=== PATIENT | female | born 1955 | race Caucasian/White ===

== ENCOUNTER 2016-07-06 21:12 | Inpatient (IN) | payer OTHER, MEDICAID ==
--- NOTE | 2016-07-06 21:23 | CPEKG ---
Heart Rate: 92 RR Interval: 652 P-R Interval: 192 QRSD Interval: 98 QT Interval: 380 QTC Interval: 471 P Alvarado: 48 QRS Alvarado: 51 T Wave Alvarado: 41 EKG Severity - ABNORMAL ECG - EKG Impression: SINUS RHYTHM EKG Impression: ABNRM R PROG, CONSIDER ASMI OR LEAD PLACEMENT Electronically Signed By: Brenda Jose 06-Jul-2016 22:36:51
--- NOTE | 2016-07-06 21:25 | EDPHY ---
H & P Time Seen by Provider: 07/06/16 21:22 HPI/ROS: CHIEF COMPLAINT: Chest pain HISTORY OF PRESENT ILLNESS: This patient is a 61 year old female who presents to the Emergency Department by EMS complaining of acute chest pain beginning tonight. When first describing her pain, she states that it began 30 minutes prior to arrival but also reports that it has lasted for two hours; she is unclear when her symptoms first presented. She describes the pain as localized in the center of her chest without radiation or jaw tightness. She reports associated shortness of breath and nausea. She denies diaphoresis, unusual swelling in her legs, fever, or cough. She was recently admitted to [facility] with unspecified complications related to a UTI. She was discharged to [facility] where she has been for the past two days. She has an extensive medical history including type II diabetes with diabetic chronic kidney disease and COPD. Per EMS, her BGL was 471 in transport. REVIEW OF SYSTEMS: A complete 10 point review of systems is negative except as mentioned in history of present illness. Past Medical/Surgical History: Insulin-dependent diabetes, diabetic chronic kidney disease, primary hypertension, COPD, chronic low back pain, unspecified mood disorder, PTSD. Smoking Status: Never smoked Physical Exam: GENERAL: Well-appearing, in no acute distress, alert. HEENT: Eyes normal to inspection, normal pharynx, no signs of dehydration. NECK: No thyromegaly, no lymphadenopathy, supple. RESPIRATORY: Clear to auscultation bilaterally, no rales, rhonchi or wheezing. CVS: Regular rate and rhythm, no rubs, murmurs, or gallops. ABDOMEN: Obese, soft, nontender, nondistended, no organomegaly. BACK: Normal to inspection, no CVA tenderness. SKIN: Normal color, no rash, warm, dry. No pallor. EXTREMITIES: No pedal edema, no calf tenderness, no Homans sign or cords, no joint swelling. NEURO/PSYCH: Alert and oriented x3, normal mood and affect, normal motor sensory exam. No obvious cranial nerve deficit. Constitutional: Initial Vital Signs Temperature (C) 37.1 C 07/06/16 21:24 Heart Rate 93 07/06/16 21:24 Respiratory Rate 20 07/06/16 21:24 Blood Pressure 126/78 H 07/06/16 21:24 O2 Sat (%) 100 07/06/16 21:24 O2 (L/minute) 4 Allergies/Adverse Reactions: ciprofloxacin [From Cipro] Allergy (Verified 07/06/16 21:22) ciprofloxacin HCl [From Cipro] Allergy (Verified 07/06/16 21:22) droperidol [From Inapsine] Allergy (Verified 07/06/16 21:22) prochlorperazine Allergy (Verified 07/06/16 21:22) prochlorperazine edisylate [From Compazine] Allergy (Verified 07/06/16 21:22) prochlorperazine maleate [From Compazine] Allergy (Verified 07/06/16 21:22) Home Medications: Medication Instructions Recorded Docusate Sodium [Colace 100 MG (*)] 100 mg PO HS 01/01/13 Gabapentin [Neurontin 300 MG (*)] 600 mg PO DAILY 01/01/13 Gabapentin [Neurontin 300 MG (*)] 900 mg PO HS 01/01/13 Liothyronine Sodium [Cytomel 5 mcg 10 mcg PO BID 01/01/13 (*)] Omeprazole 40 mg PO DAILY 01/01/13 Promethazine HCl [Phenergan 25mg 25 mg PO BID 01/01/13 (*)] Potassium Chloride [Klor-Con M10] 20 meq PO BID 06/14/13 Aspirin [Aspirin 81mg (*)] 81 mg PO DAILY 07/20/13 Furosemide [Lasix 40 MG (*)] 80 mg PO BID 07/20/13 Lidocaine 5% [Lidoderm 5% Patch 1 - 2 ea TD Q12 PRN 07/20/13 (*)] Diazepam [Valium 2 MG (*)] 1 mg PO BID PRN 12/22/13 Levothyroxine [Synthroid 100 mcg 200 mcg PO DAILY06 12/22/13 (*)] Albuterol [Proventil Neb] 2.5 mg IH DAILY PRN 02/14/14 Cholecalciferol Vit D3 [Vitamin D3 2,000 units PO DAILY 02/14/14 (*)] Fluoxetine HCl [Prozac 40 mg] 40 mg PO DAILY 02/14/14 Insulin Aspart [novoLOG] 0 unit SC AC 02/14/14 Ketoconazole 2% [Nizoral 2% Cream 1 sonny TP DAILY PRN 02/14/14 (*)] Nystatin [Nyamyc] 1 sonny TP TID PRN 02/14/14 Ondansetron HCl [Zofran] 8 mg PO DAILY PRN 02/14/14 Phenazopyridine HCl [Pyridium] 400 mg PO DAILY PRN 02/14/14 Promethazine HCl [Phenergan] 50 mg IM DAILY PRN 02/14/14 acetaZOLAMIDE [Diamox] 250 mg PO QAM 02/14/14 Insulin Glargine [Lantus 100 24 units SC DAILY #0 ml 02/18/14 UNITS/ML (*)] morphINE IR [morphINE IR 15 mg (*)] 7.5 - 15 mg PO Q4 PRN #0 tab 02/18/14 morphINE SR [Ms Contin/Oramorph 15 30 mg PO BID #0 tab 02/18/14 mg (*)] Medical Decision Making - Diagnostics EKG Interpretation: EKG shows normal sinus rhythm, normal rate, normal axis, normal intervals. Poor R wave progression. There are no ST or T-wave abnormalities. Imaging: Study: X-ray of the chest Indication: Chest pain Results: X-ray of the chest was obtained. The results of the study are: The study was read by the radiologist, Dr. Emre Martin. I viewed the images myself on the PACS system. ED Course/Re-evaluation: The patient was administered Aspirin by EMS in transport. EKG, chest x-ray, and labs ordered. Consultation with Dr. Kalyn Rashid, hospitalist, who accepts admission for cardiac monitoring. Labs have not yet been obtained as the patient is a difficult stick secondary to her obesity. 2222: The RN obtained blood and an IV was established. I signed the patient out to Dr. Gamboa and discussed with him the plan for admission for continued cardiac monitoring. Differential Diagnosis: My differential includes but is not limited to ACS, acute [place], pericarditis, myocarditis, aortic aneurysm, dissection, pneumonia, bronchitis, urinary tract infection, electrolyte abnormality, sugar abnormality - Data Points Laboratory Results: 07/06/16 21:39 WBC Pending RBC Pending Hgb Pending Hct Pending MCV Pending MCH Pending MCHC Pending RDW Pending Plt Count Pending MPV Pending Neut % (Auto) Pending Lymph % (Auto) Pending [place] % (Auto) Pending Eos % (Auto) Pending Baso % (Auto) Pending Nucleat RBC Rel Count Pending Absolute Neuts (auto) Pending Absolute Lymphs (auto) Pending Absolute Monos (auto) Pending Absolute Eos (auto) Pending Absolute Basos (auto) Pending Absolute Nucleated RBC Pending Immature Gran % Pending Immature Gran # Pending Departure - Departure Disposition: [facility] In[facility] Acute Clinical Impression: Chest pain Qualifiers: Chest pain type: unspecified Qualifier Code: (R07.9) Chest pain, unspecified Condition: Fair Referrals: KIRTI ACEVEDO [Primary Care Provider] - As per Instructions Report Scribed for: Brenda Jose Report Scribed by: Anna Carranza Date of Report: 07/06/16 Time of Report: 21:24
[2016-07-06 22:34] LABS: % IMMATURE GRANULYOCYTES 0.4 % (0.0-1.1); ABSOLUTE IMMATURE GRANULOCYTES 0.02 10^3/uL (0.00-0.10); ADD DIFF? NO; ADD MORPH? NO; ADD SCAN? NO; ATYPICAL LYMPHOCYTE FLAG 0 (0-99); FRAGMENT RBC FLAG 0 (0-99); HEMATOCRIT 36.1 % (38.0-47.0); HEMOGLOBIN 11.7 g/dL (12.6-16.3); LEFT SHIFT FLG 0 (0-99); LIPEMIA HEMOLYSIS FLAG 80 (0-99); MEAN CELL HEMOGLOBIN 28.2 pg (27.9-34.1); MEAN CELL HEMOGLOBIN CONCENTR. 32.4 g/dL (32.4-36.7); PLATELET CLUMPS FLAG 20 (0-99); PLATELET COUNT 95 10^3/uL (150-400); RED BLOOD CELL COUNT 4.15 10^6/uL (4.18-5.33); RED CELL DISTRIBUTION WIDTH 16.3 % (11.5-15.2)
[2016-07-06 22:44] LABS: ANION GAP 14 mEq/L (8-16); CALCIUM 9.5 mg/dL (8.5-10.4); CARBON DIOXIDE 32 mEq/l (22-31); CHLORIDE 89 mEq/L (97-110); CREATININE 2.9 mg/dL (0.6-1.0); GLOMERULAR FILTRATION RATE 16; SODIUM 135 mEq/L (134-144)
[2016-07-06 22:45] LABS: POTASSIUM 4.5 mEq/L (3.3-5.0)
[2016-07-06 22:47] LABS: GLUCOSE 547 mg/dL (70-100)
[2016-07-06] MEDS ORDERED: NS 1,000 ML IV ONE (22:48)
--- NOTE | 2016-07-06 22:55 | DX ---
Portable AP Upright Chest, at 10:36 p.m. Clinical History: 61-year-old female in the ED with chest pain. Comparison Study: Chest, dated February 14, 2014. Findings: The patient is slightly rotated the right. Oxygen tubing and telemetry monitoring lead line s are noted. The cardiac and mediastinal silhouette remains enlarged. The pulmonary vasculature is eq ualized, and there is some mild peribronchial thickening. There is no focal infiltrate, pleural effus ion, peripheral interstitial edema, or pneumothorax. The osseous structures are stable. Impression: Chronic cardiac silhouette enlargement and mild pulmonary venous hypertension.
[2016-07-06 23:05] LABS: TROPONIN I < 0.012 ng/mL (0-0.034)
[2016-07-06 23:21] LABS: INR 1.02 (0.83-1.16); PROTIME(PATIENT) 13.3 SEC (12.0-15.0)
[2016-07-06 23:22] LABS: APTT 25.5 SEC (23.0-38.0)
[2016-07-06] MEDS ORDERED: HYDROCODONE/APAP 5/325 TAB PO PRN (23:23)
[2016-07-06] MEDS ORDERED: ONDANSETRON 4 MG/2 ML VIAL IVP PRN (23:23)
[2016-07-06] MEDS ORDERED: IPRATROPIUM/ALBUTEROL 3 ML DEYVIAL IH PRN (23:23)
[2016-07-06] MEDS ORDERED: ONDANSETRON DISINTEGRATING 4 MG TAB PO PRN (23:23)
[2016-07-06] MEDS ORDERED: ACETAMINOPHEN 325 MG TAB PO PRN (23:23)
[2016-07-06 23:25] LABS: COLOR PALE YELLOW; LEUKOCYTE ESTERASE,URINE NEGATIVE (NEGATIVE); NITRITE,URINE NEGATIVE (NEGATIVE)
[2016-07-06] MEDS ORDERED: D50W 25 GM/50 ML SYR IVP PRN (23:30)
[2016-07-06] MEDS ORDERED: INSULIN LISPRO 100 UNIT/ML SC ONE (23:57)
[2016-07-07] MEDS ORDERED: NS 1,000 ML IV SCH (00:30)
[2016-07-07] MEDS ORDERED: INSULIN LISPRO 100 UNIT/ML SC ONE (01:13)
[2016-07-07] MEDS ORDERED: TEMAZEPAM 15 MG CAP PO ONE (01:15)
[2016-07-07] MEDS ORDERED: NS 1,000 ML IV ONE (01:17)
[2016-07-07] MEDS: oxyCODONE IR 5 MG TAB PO PRN ×2 (01:35→20:40)
[2016-07-07 05:00] LABS: % IMMATURE GRANULYOCYTES 0.4 % (0.0-1.1); ABSOLUTE IMMATURE GRANULOCYTES 0.02 10^3/uL (0.00-0.10); ADD DIFF? NO; ADD MORPH? NO; ADD SCAN? NO; ATYPICAL LYMPHOCYTE FLAG 0 (0-99); FRAGMENT RBC FLAG 0 (0-99); HEMATOCRIT 31.6 % (38.0-47.0); HEMOGLOBIN 10.3 g/dL (12.6-16.3); LEFT SHIFT FLG 0 (0-99); LIPEMIA HEMOLYSIS FLAG 80 (0-99); MEAN CELL HEMOGLOBIN 28.4 pg (27.9-34.1); MEAN CELL HEMOGLOBIN CONCENTR. 32.6 g/dL (32.4-36.7); MEAN CELL VOLUME 87.1 fL (81.5-99.8); MEAN PLATELET VOLUME 11.6 fL (8.7-11.7); PLATELET CLUMPS FLAG 0 (0-99); PLATELET COUNT 89 10^3/uL (150-400); RED BLOOD CELL COUNT 3.63 10^6/uL (4.18-5.33); RED CELL DISTRIBUTION WIDTH 16.3 % (11.5-15.2)
[2016-07-07 05:13] LABS: ALANINE AMINOTRANSFERASE 33 IU/L (9-52); ALBUMIN 3.2 g/dL (3.5-5.0); ALKALINE PHOSPHATASE 89 IU/L (38-126); ANION GAP 10 mEq/L (8-16); ASPARTATE AMINOTRANSFERASE 16 IU/L (14-46); BILIRUBIN,TOTAL 0.5 mg/dL (0.1-1.4); CALCIUM 8.9 mg/dL (8.5-10.4); CARBON DIOXIDE 30 mEq/l (22-31); CHLORIDE 94 mEq/L (97-110); CREATININE 2.7 mg/dL (0.6-1.0); GLOMERULAR FILTRATION RATE 18; MAGNESIUM 1.8 mg/dL (1.6-2.3); POTASSIUM 4.3 mEq/L (3.5-5.2); SODIUM 134 mEq/L (134-144); TOTAL PROTEIN 6.2 g/dL (6.3-8.2)
[2016-07-07 05:15] LABS: GLUCOSE 521 mg/dL (70-100)
[2016-07-07 05:24] LABS: TROPONIN I < 0.012 ng/mL (0-0.034)
--- NOTE | 2016-07-07 05:57 | PDGENHP ---
History and Physical - Chief Complaint chest pain - History of Present Illness Patient is a 61-year-old female with a history of DM type 2, COPD on chronic oxygen, CKD, hypertension, chronic pain, morbid obesity who presents to the ED complaining of chest pain. Patient had recent hospitalization at outside hospital for UTI, was discharged to the subacute rehab and then to [facility]term [facility] living facility two days ago. She states at around 6: 30 a.m. this evening while lying in bed she felt palpitations, which then became accompanied with substernal chest pain and dizziness. She denies any diaphoresis, nausea, shortness of breath. She informed the [facility] staff of her symptoms and EMS was called. She also reports prior to leaving her most recent blood sugar was in the 600 range. She reports being on Lantus and short- acting insulin, but is not sure when it was last administered. Upon arrival to the ED patient was afebrile and hemodynamically stable. EKG was unremarkable for any signs of active ischemia. Labs were significant for hyperglycemia in the 500 range elevated BUN and creatinine and negative troponin. Chest x-ray was unremarkable and patient was admitted to the hospital service for further evaluation and management History Information - Allergies/Home Medication List Allergies/Adverse Reactions: ciprofloxacin [From Cipro] Allergy (Verified 07/06/16 21:22) ciprofloxacin HCl [From Cipro] Allergy (Verified 07/06/16 21:22) droperidol [From Inapsine] Allergy (Verified 07/06/16 21:22) prochlorperazine Allergy (Verified 07/06/16 21:22) prochlorperazine edisylate [From Compazine] Allergy (Verified 07/06/16 21:22) prochlorperazine maleate [From Compazine] Allergy (Verified 07/06/16 21:22) Home Medications: Docusate Sodium [Colace 100 MG (*)] 100 mg PO HS 01/01/13 [Last Taken 01/30/14] Gabapentin [Neurontin 300 MG (*)] 600 mg PO DAILY 01/01/13 [Last Taken 01/31/14] Gabapentin [Neurontin 300 MG (*)] 900 mg PO HS 01/01/13 [Last Taken 02/12/14] Liothyronine Sodium [Cytomel 5 mcg (*)] 10 mcg PO BID 01/01/13 [Last Taken 12/22 09:00] Omeprazole 40 mg PO DAILY 01/01/13 [Last Taken 01/31/14] Promethazine HCl [Phenergan 25mg (*)] 25 mg PO BID 01/01/13 [Last Taken 02/13/14 ] Potassium Chloride [Klor-Con M10] 20 meq PO BID 06/14/13 [Last Taken 02/14/14] Aspirin [Aspirin 81mg (*)] 81 mg PO DAILY 07/20/13 [Last Taken 02/14/14] Furosemide [Lasix 40 MG (*)] 80 mg PO BID 07/20/13 [Last Taken 01/31/14] Lidocaine 5% [Lidoderm 5% Patch (*)] 1 - 2 ea TD Q12 PRN 07/20/13 [Last Taken ] Diazepam [Valium 2 MG (*)] 1 mg PO BID PRN 12/22/13 [Last Taken 12/21/13 20:00] Levothyroxine [Synthroid 100 mcg (*)] 200 mcg PO DAILY06 12/22/13 [Last Taken 09:00] Albuterol [Proventil Neb] 2.5 mg IH DAILY PRN 02/14/14 [Last Taken Unknown] Cholecalciferol Vit D3 [Vitamin D3 (*)] 2,000 units PO DAILY 02/14/14 [Last Taken Unknown] Fluoxetine HCl [Prozac 40 mg] 40 mg PO DAILY 02/14/14 [Last Taken 02/14/14] Insulin Aspart [novoLOG] 0 unit SC AC 02/14/14 [Last Taken 02/14/14] Ketoconazole 2% [Nizoral 2% Cream (*)] 1 sonny TP DAILY PRN 02/14/14 [Last Taken Unknown] Nystatin [Nyamyc] 1 sonny TP TID PRN 02/14/14 [Last Taken Unknown] Ondansetron HCl [Zofran] 8 mg PO DAILY PRN 02/14/14 [Last Taken Unknown] Phenazopyridine HCl [Pyridium] 400 mg PO DAILY PRN 02/14/14 [Last Taken Unknown] Promethazine HCl [Phenergan] 50 mg IM DAILY PRN 02/14/14 [Last Taken Unknown] acetaZOLAMIDE [Diamox] 250 mg PO QAM 02/14/14 [Last Taken Unknown] I have personally reviewed and updated: family history, medical history, social history, surgical history - Past Medical History Additional medical history: COPD. Chronic respiratory failure. Hypertension. CKD. DM type 2, on insulin. Morbid obesity. Hypothyroidism. chronic pain, with chronic opioid dependence. Mood disorder. Thoracic outlet syndrome. distant history of pulmonary embolism. Patient reports a history of atrial fibrillation, although this is not documented in her [facility] paperwork, nor any previous documentation in [facility] EMR - Surgical History Additional surgical history: b/l cataract repair. R nephrectomy. appendectomy. cholecystectomy. hysterectomy. R ankle laceration repair. thoracic rib removal/thoracic outlet syndrome repair - Family History Positive for: CAD - Social History Smoking Status: Never smoked Alcohol Use: None Additional social history: Lives in [facility], dependent for most ADLs. Family in [place]. Review of Systems ROS: 10pt was reviewed & negative except for what was stated in HPI & below Physical Exam Temp Pulse Resp BP Pulse Ox 36.9 C 67 16 105/53 L 97 07/07/16 03:50 07/07/16 03:50 07/07/16 03:50 07/07/16 03:50 07/07/16 03:50 O2 (L/minute) 4 Constitutional: no apparent distress, not in pain, obese Eyes: PERRL, anicteric sclera, EOMI Ears, Nose, Mouth, Throat: moist mucous membranes, hearing normal, ears appear normal, no oral mucosal ulcers Cardiovascular: regular rate and rhythym, systolic murmur (ejection murmur), pulses symmetric bilaterally, edema (b/l edema and chronic venous stasis changes ), No JVD, No tachycardia Peripheral Pulses: 2+: dorsalis-pedis (R), dorsalis-pedis (L) Respiratory: no respiratory distress, no rales or rhonchi, clear to auscultation , other (distant breath sounds) Gastrointestinal: normoactive bowel sounds, soft, non-tender abdomen, no palpable masses, other (obese), No tenderness, No guarding, No rebound Genitourinary: no bladder fullness, no bladder tenderness Skin: other (chronic venous stasis changes on b/l LE, erythema more pronounced on RLE) Neurologic: AAOx3, sensation intact bilaterally, CN II-XII Intact, other ( moving all extremities equally; sensation to light touch intact), No weakness, No numbness, No pronator drift Psychiatric: interacting appropriately, not anxious, not encephalopathic, thought process linear Lab Data & Imaging Review 07/07/16 04:00 07/07/16 04:00 WBC 4.69 10^3/uL (3.80-9.50) 07/07/16 04:00 RBC 3.63 10^6/uL (4.18-5.33) L 07/07/16 04:00 Hgb 10.3 g/dL (12.6-16.3) L 07/07/16 04:00 Hct 31.6 % (38.0-47.0) L 07/07/16 04:00 MCV 87.1 fL (81.5-99.8) 07/07/16 04:00 MCH 28.4 pg (27.9-34.1) 07/07/16 04:00 MCHC 32.6 g/dL (32.4-36.7) 07/07/16 04:00 RDW 16.3 % (11.5-15.2) H 07/07/16 04:00 Plt Count 89 10^3/uL (150-400) L 07/07/16 04:00 MPV 11.6 fL (8.7-11.7) 07/07/16 04:00 Neut % (Auto) 45.9 % (39.3-74.2) 07/07/16 04:00 Lymph % (Auto) 38.8 % (15.0-45.0) 07/07/16 04:00 [place] % (Auto) 9.6 % (4.5-13.0) 07/07/16 04:00 Eos % (Auto) 4.9 % (0.6-7.6) 07/07/16 04:00 Baso % (Auto) 0.4 % (0.3-1.7) 07/07/16 04:00 Nucleat RBC Rel Count 0.0 % (0.0-0.2) 07/07/16 04:00 Absolute Neuts (auto) 2.15 10^3/uL (1.70-6.50) 07/07/16 04:00 Absolute Lymphs (auto) 1.82 10^3/uL (1.00-3.00) 07/07/16 04:00 Absolute Monos (auto) 0.45 10^3/uL (0.30-0.80) 07/07/16 04:00 Absolute Eos (auto) 0.23 10^3/uL (0.03-0.40) 07/07/16 04:00 Absolute Basos (auto) 0.02 10^3/uL (0.02-0.10) 07/07/16 04:00 Absolute Nucleated RBC 0.00 10^3/uL (0-0.01) 07/07/16 04:00 Immature Gran % 0.4 % (0.0-1.1) 07/07/16 04:00 Immature Gran # 0.02 10^3/uL (0.00-0.10) 07/07/16 04:00 PT 13.3 SEC (12.0-15.0) 07/06/16 21:39 INR 1.02 (0.83-1.16) 07/06/16 21:39 APTT 25.5 SEC (23.0-38.0) 07/06/16 21:39 D-Dimer 1.42 ug/mLFEU (0.00-0.50) H 07/06/16 21:39 Sodium 134 mEq/L (134-144) 07/07/16 04:00 Potassium 4.3 mEq/L (3.5-5.2) 07/07/16 04:00 Chloride 94 mEq/L (97-110) L 07/07/16 04:00 Carbon Dioxide 30 mEq/l (22-31) 07/07/16 04:00 Anion Gap 10 mEq/L (8-16) 07/07/16 04:00 BUN 31 mg/dL (7-23) H 07/07/16 04:00 Creatinine 2.7 mg/dL (0.6-1.0) H 07/07/16 04:00 Estimated GFR 18 07/07/16 04:00 Glucose 521 mg/dL (70-100) H* 07/07/16 04:00 POC Glucose > 350 mg/dL (70-100) H 07/07/16 00:41 Calcium 8.9 mg/dL (8.5-10.4) 07/07/16 04:00 Magnesium 1.8 mg/dL (1.6-2.3) 07/07/16 04:00 Total Bilirubin 0.5 mg/dL (0.1-1.4) 07/07/16 04:00 AST 16 IU/L (14-46) 07/07/16 04:00 ALT 33 IU/L (9-52) 07/07/16 04:00 Alkaline Phosphatase 89 IU/L (38-126) 07/07/16 04:00 Troponin I < 0.012 ng/mL (0-0.034) 07/07/16 04:00 NT-Pro-B Natriuret Pep 124 pg/mL (0-125) 07/06/16 21:39 Total Protein 6.2 g/dL (6.3-8.2) L 07/07/16 04:00 Albumin 3.2 g/dL (3.5-5.0) L 07/07/16 04:00 TSH 7.960 uIU/mL (0.465-4.680) H 07/07/16 04:00 Urine Color PALE YELLOW 07/06/16 23:10 Urine Appearance CLEAR 07/06/16 23:10 Urine pH 6.0 (5.0-7.5) 07/06/16 23:10 Ur Specific Fletcher 1.007 (1.002-1.030) 07/06/16 23:10 Urine Protein NEGATIVE (NEGATIVE) 07/06/16 23:10 Urine Ketones NEGATIVE (NEGATIVE) 07/06/16 23:10 Urine Blood NEGATIVE (NEGATIVE) 07/06/16 23:10 Urine Nitrate NEGATIVE (NEGATIVE) 07/06/16 23:10 Urine Bilirubin NEGATIVE (NEGATIVE) 07/06/16 23:10 Urine Urobilinogen NEGATIVE EU (0.2-1.0) 07/06/16 23:10 Ur Leukocyte Esterase NEGATIVE (NEGATIVE) 07/06/16 23:10 Urine RBC 1-3 /hpf (0-3) 07/06/16 23:10 Urine WBC 1-3 /hpf (0-3) 07/06/16 23:10 Ur Epithelial Cells TRACE /lpf (NONE-1+) 07/06/16 23:10 Ur Culture Indicated? NOT INDICATED (NI) 07/06/16 23:10 Urine Glucose 3+ (NEGATIVE) H 07/06/16 23:10 Visualized and Interpreted Chest x-ray results: Yes Chest X-Ray results: no infiltrate, normal Visualized and Interpreted EKG results: Yes EKG Interpretation: Positive for: normal sinsus rhythm ( no ST/T wave abnormalities) Assessment & Plan Assessment: Patient is a 61-year-old female with a history of chronic respiratory failure, COPD, hypertension, diabetes, morbid obesity who presents to the ED with acute onset chest pain. In the ED initial evaluation for ACS was unrevealing, and patient was also noted to be significantly hyperglycemic. Plan: # chest pain Patient describes palpitations and chest pain, although EKG reveals normal sinus rhythm without evidence of ischemia. Initial troponin also negative. Differential also includes acute PE, as patient is at high risk, although she is at baseline respiratory status, not tachycardic or tachypneic. D-dimer has resulted positive, but unable to obtain CT angio given renal function. Will start with lower extremity Dopplers, if positive will get V/Q scan. - trend troponins, serial EKG - check TTE - check lower extremity dopplers - consider V/Q scan - if above neg, consider check nuclear stress test # hyperglycemic, uncontrolled DM2 Pt significantly hyperglycemic on presentation. Unclear if pt is compliant with insulin dosing, although living in SNF should simplify this. She does report dietary noncompliance, drinking sodas and eating snacks. No evidence of ketoacidosis or significant HHS on labs. Given 1L IVF in ED. - monitor FS q4h, with lispro sliding scale coverage - restart outpt insulin regimen # elevated BUN/Cr Pt with CKD, not sure what her baseline cr is, but pt appears euvolemic on presentation today, likely at her baseline. Will give gentle IV fluid hydration and reassess. Electrolytes are wnl, UA unremarkable. - trend BMP after hydration - check urine electrolytes # copd, chronic respiratory failure Pt appears to be at baseline resp status, stable on 4L NC. Will consider ruling out PE with V/Q scan, as per above plan, but pt presently stable. - cont home inhalers - nebs prn wheezing # HTN BP stable on presentation, cont home meds # Hypothyroidism Check TSH, cont synthroid # dispo: admit to inpt service for > 2 MN given multiple active comorbidities # gen: diabetic diet DVT ppx: HSQ q8h Full code
[2016-07-07] MEDS: INSULIN LISPRO 100 UNIT/ML SC SCH ×6 (06:17→23:25)
[2016-07-07] MEDS: HEPARIN 5,000 UNIT/0.5 ML SYR SC SCH ×3 (06:17→21:03)
[2016-07-07] MEDS ORDERED: INSULIN LISPRO 100 UNIT/ML SC SCH ×2 (08:00→10:00)
--- NOTE | 2016-07-07 08:20 | US ---
Venous Duplex Doppler Study of the Right Lower Extremity Clinical Indications: 61-year-old female with a positive d-dimer. Rule out DVT. Technique: A high-frequency transducer was used for imaging and Doppler study of the deep veins of b h legs was requested; however, the patient refused the exam after the cementing machine operator scanned the right common femoral vein and the proximal profunda femoris vein, and the proximal to mid right femoral ve in. There was no sonographic evaluation of the right femoral vein from the level of the distal thigh to the ankle, or scanning of the left leg. Comparison Study: The patient had bilateral lower extremity venous Doppler studies on March 26, reported as negative. Findings: There is patency of the right common femoral vein, the right femoral vein (along the mid a nd distal thigh), and the proximal profunda femoris vein. The right greater saphenous vein is jaime sible from the level of the mid thigh, knee, and midcalf. Impression: The right common femoral vein, proximal and mid right femoral vein, and the proximal prof unda femoris vein are patent. The patient refused any further imaging beyond these points.
--- NOTE | 2016-07-07 08:58 | CPEKG ---
Heart Rate: 65 RR Interval: 923 QRSD Interval: 102 QT Interval: 456 QTC Interval: 475 QRS O'Kean: 45 T Wave O'Kean: 33 EKG Severity - ABNORMAL ECG - EKG Impression: ATRIAL FIBRILLATION Preliminary Awaiting MD Review
[2016-07-07] MEDS ORDERED: NON-FORMULARY NEW DRUG (Ondansetron Hcl [Zofran] 4 MG) PO PRN (09:31)
[2016-07-07] MEDS ORDERED: SODIUM CL NASAL 45 ML BTL EACHNARE PRN (09:31)
[2016-07-07] MEDS ORDERED: ALBUTEROL 3 ML DEYVIAL IH PRN ×2 (09:31→10:03)
[2016-07-07] MEDS ORDERED: NON-FORMULARY NEW DRUG (Insulin Detemir [Levemir] 20 UNIT) SC SCH (09:45)
--- NOTE | 2016-07-07 09:49 | HOSPPROG ---
Hospitalist Progress Note Assessment/Plan: 61 yo F w morbid obesity, dm, chronic narcotic use here w CP CP: neg trop, non ischemic ekg certainly at risk for CAD given rf profile scheduled for stress but cancelled for unclear reasons but will follow up on that check lipids on asa + ddimer, h/o PE, not anticoagulated no DVT on R side, refused L side eval 1. echo 2. patient unclear if she wants stress test 3. no further VTE workup at this point MIRNA: uncertain etiology suspect dry given that she is on lasix and has been markedly hyperglycemic 1. IVF 2. hold lasix 3. dc abx; check urine eos if continuing to rise DM: continue insulin and januvia follow today before uptitrating check A1c chronic narcotics: continue meds as they were prescribed at [facility] proph: sc heparin dispo: inpt uti: neg UA dc augmentin Subjective: ekg read as AF but not- it's sinus (intero by me). no events on telemetry (interp by me). asking for picc line Objective: Vital Signs Temp Pulse Resp BP Pulse Ox 36.6 C 62 17 119/60 91 L 07/07/16 07:42 07/07/16 07:42 07/07/16 07:42 07/07/16 07:42 07/07/16 07:42 Laboratory Results 07/07/16 04:00 07/07/16 04:00 07/06/16 07/07/16 07/08/16 05:59 05:59 05:59 Intake Total 1630 Output Total 1000 Balance 630 PT 13.3 SEC (12.0-15.0) 07/06/16 21:39 INR 1.02 (0.83-1.16) 07/06/16 21:39 - Physical Exam Constitutional: no apparent distress, appears nourished Eyes: PERRL, anicteric sclera Ears, Nose, Mouth, Throat: moist mucous membranes, hearing normal Cardiovascular: regular rate and rhythym, no murmur, rub, or gallop, No irregularly irregular, No tachycardia Respiratory: no respiratory distress, no rales or rhonchi Gastrointestinal: normoactive bowel sounds, soft, non-tender abdomen Genitourinary: no bladder fullness, No dominguez in urethra Skin: warm, normal color, other (chronic venous stasis changes) Musculoskeletal: full muscle strength, no muscle tenderness Neurologic: AAOx3 Psychiatric: interacting appropriately, not anxious Lymph, Heme, Immunologic: no cervical LAD ICD10 Worksheet Patient Problems: Problems Problem Status Diagnosed Atrial fibrillation Acute Chest pain Acute Obesity hypoventilation syndrome Acute Overdose Acute Seizure Acute UTI (lower urinary tract infection) Acute
[2016-07-07] MEDS: ASPIRIN 81 MG CHEWABLE TAB PO SCH (09:59)
[2016-07-07] MEDS ORDERED: AMOXICILLIN/CLAVULANATE POT 875/125 MG TAB PO SCH (10:00)
[2016-07-07] MEDS ORDERED: ONDANSETRON DISINTEGRATING 4 MG TAB PO PRN (10:06)
[2016-07-07] MEDS: LIDOCAINE 5% 1 EA PATCH TD SCH (10:11)
--- NOTE | 2016-07-07 11:27 | ECHO ---
[id number] + + [address] : : [place] [address] : : [phone] + + Adult Echocardiographic Report + -+ :Name: REYES LIZ LStudy Date: 07/07/2016 09:44 AM : : Hospital Admission Number: [id number] : :: 1955 Gender: Female Height: 68 in : :Age: 61 yrs Race: WH Weight: 345 lb : :Reason For Study: Chest pain/palpatations/murmur : : BSA: 2.6 meters 2: + -+ MMode/2D Measurements & Calculations IVSd: 1.2 cm LVIDd: 4.4 cm EDV(Teich): 88.5 ml Ao root diam: 3.5 cm LVPWd: 0.95 cm Normal Measurement Values: + + :LVIDd (3.5-5.7cm) IVSd (0.6-1.1cm) LVPWd (0.6-1.1cm) Aortic Root (2.0-3.7cm)Left Atrium (1.5-4.0cm): :LV Vol(d) (76-115ml) LV Vol(s) (29-48ml) Ejec Fraction (50-65%)PV Robert (0.6- 1.2m/s) TV Robert (0.4-1.0m/s) : :MV E Robert (0.8-1.0m/s)MV A Robert (0.3-1.0m/s)LVOT Robert (0.7-1.2m/s) Asc Ao Robert ( 0.9-1.8m/s) : + + Doppler Measurements & Calculations Ao V2 max: 156.1 cm/sec Ao max P.7 mmHg Left Ventricle The left ventricle is normal in size. Ejection Fraction = 65-70%. Mitral Valve The mitral valve leaflets appear normal. There is no evidence of stenosis, fluttering, or prolapse. Tricuspid Valve Normal tricuspid valve. Aortic Valve The aortic valve opens well. Pulmonic Valve The pulmonic valve is not well visualized. Great Vessels The aortic root is normal size. Pericardium/Pleural There is no pericardial effusion. There is a fat pad seen. Conclusion A complete two-dimensional transthoracic echocardiogram was performed (2D, M-mode, Doppler and color flow Doppler). Technically difficult study - pt is obese. Ejection Fraction = 65-70%. No significant valvular heart disease. Final Reading Physician: Elías Garcia signed on 07/07/2016 11:26 AM Performed By: Ruchi Vargas RDCS
[2016-07-07] MEDS: GABAPENTIN 400 MG CAP PO SCH ×3 (12:14→20:38)
[2016-07-07] MEDS ORDERED: ALTEPLASE 2 MG VIAL IVP PRN (13:51)
[2016-07-07] MEDS ORDERED: FUROSEMIDE 40 MG TAB PO SCH (15:00)
[2016-07-07] MEDS: NS 1,000 ML IV SCH ×2 (15:16→21:51)
[2016-07-07] MEDS: INSULIN GLARGINE 100 UNITS/ML SYRINGE SC SCH ×2 (15:19→21:42)
[2016-07-07] MEDS: SENNOSIDES 1 TAB PO SCH (20:39)
[2016-07-07] MEDS: ATORVASTATIN CALCIUM 20 MG TAB PO SCH (20:39)
[2016-07-07] MEDS: NYSTATIN POWDER 15 GM BTL TP SCH (20:50)
[2016-07-08] MEDS: NS 1,000 ML IV SCH ×3 (02:40→23:41)
[2016-07-08] MEDS: INSULIN LISPRO 100 UNIT/ML SC SCH ×5 (04:02→23:22)
[2016-07-08] MEDS: GABAPENTIN 400 MG CAP PO SCH ×4 (06:18→21:40)
[2016-07-08] MEDS: LEVOTHYROXINE 100 MCG TAB PO SCH (06:18)
[2016-07-08] MEDS: HEPARIN 5,000 UNIT/0.5 ML SYR SC SCH ×4 (06:18→21:40)
[2016-07-08] MEDS: ASPIRIN 81 MG CHEWABLE TAB PO SCH (08:30)
[2016-07-08] MEDS: FAMOTIDINE 20 MG TAB PO SCH (08:30)
[2016-07-08] MEDS: SENNOSIDES 1 TAB PO SCH ×2 (08:30→22:28)
[2016-07-08] MEDS: AMIODARONE HCL 200 MG TAB PO SCH (08:30)
[2016-07-08] MEDS: INSULIN GLARGINE 100 UNITS/ML SYRINGE SC SCH ×2 (08:30→21:42)
[2016-07-08] MEDS: CETIRIZINE 10 MG TAB PO SCH (08:30)
[2016-07-08] MEDS: NYSTATIN POWDER 15 GM BTL TP SCH ×2 (08:31→21:41)
[2016-07-08] MEDS: LIDOCAINE 5% 1 EA PATCH TD SCH (08:31)
[2016-07-08] MEDS: TIOTROPIUM INHALER 18 MCG/DOSE 5 DOSE/MDI IH SCH (08:34)
[2016-07-08] MEDS ORDERED: NON-FORMULARY NEW DRUG (Loratadine [Claritin 10 Mg] 10 MG) PO SCH (09:00)
[2016-07-08] MEDS ORDERED: Herbals/Supplements -Info Only PO SCH (09:00)
[2016-07-08] MEDS ORDERED: NON-FORMULARY NEW DRUG (Ranitidine Hcl [Ranitidine Hcl] 150 MG) PO SCH (09:00)
[2016-07-08 09:10] LABS: ANION GAP 6 mEq/L (8-16); CALCIUM 8.1 mg/dL (8.5-10.4); CARBON DIOXIDE 31 mEq/l (22-31); CHLORIDE 101 mEq/L (97-110); GLOMERULAR FILTRATION RATE 25; GLUCOSE 318 mg/dL (70-100); POTASSIUM 4.4 mEq/L (3.5-5.2); SODIUM 138 mEq/L (134-144)
--- NOTE | 2016-07-08 09:42 | HOSPPROG ---
Hospitalist Progress Note Assessment/Plan: 61 yo F w morbid obesity, dm, chronic narcotic use here w CP CP: neg trop, non ischemic ekg certainly at risk for CAD given rf profile CP ongoing discussed risks and benefits of stress test w her and she declines check lipids on asa + ddimer, h/o PE, not anticoagulated no DVT on R side, refused L side eval 1. echo poor quality- not helpful in PE eval MIRNA: improving w IVF suspect dry continue ivf AF: on amio w no anticoag she states she has had multiple admissions to to [facility] w AF I have requested records from [facility] for clarification CHADS Vasc1 will await records and likely start anticoag DM: continue insulin and januvia follow today before uptitrating check A1c increase lantus and ss chronic narcotics: continue meds as they were prescribed at [facility] proph: sc heparin dispo: inpt uti: neg UA dc augmentin Subjective: tele: interp by me- lots of artifzact but no clear AF Objective: Vital Signs Temp Pulse Resp BP Pulse Ox 36.7 C 61 12 116/55 L 99 07/08/16 07:50 07/08/16 07:50 07/08/16 07:50 07/08/16 07:50 07/08/16 07:50 Laboratory Results 07/07/16 04:00 07/08/16 08:20 07/07/16 07/08/16 07/09/16 05:59 05:59 05:59 Intake Total 1630 3200 Output Total 1000 2300 500 Balance 630 900 -500 PT 13.3 SEC (12.0-15.0) 07/06/16 21:39 INR 1.02 (0.83-1.16) 07/06/16 21:39 - Physical Exam Constitutional: no apparent distress, appears nourished Eyes: PERRL, anicteric sclera Ears, Nose, Mouth, Throat: moist mucous membranes, hearing normal Cardiovascular: regular rate and rhythym, no murmur, rub, or gallop, No systolic murmur Respiratory: no respiratory distress, no rales or rhonchi Gastrointestinal: normoactive bowel sounds, soft, non-tender abdomen Genitourinary: no bladder fullness, dominguez in urethra Skin: warm Musculoskeletal: full muscle strength ICD10 Worksheet Patient Problems: Problems Problem Status Diagnosed Atrial fibrillation Acute Chest pain Acute Obesity hypoventilation syndrome Acute Overdose Acute Seizure Acute UTI (lower urinary tract infection) Acute
[2016-07-08 11:53] LABS: HEMOGLOBIN A1C 7.6 % (4.0-6.0)
--- NOTE | 2016-07-08 13:21 | DX ---
Portable Chest July 08, 2016 1306 hours Comparison: July 06, 2016. Clinical Indications: Central line placement. Findings: Frontal view (only) shows clear lungs and no masses. Heart size is mildly enlarged. Pulmon justice venous congestion persists. No evidence of pleural effusion. There is a new right IJ central bladimir e with tip in the right atrium. Impression: 1. Mild cardiomegaly and pulmonary venous congestion unchanged. 2. Central line tip in the upper right atrium in good position. 3. No evidence of pneumothorax post central line placement.
--- NOTE | 2016-07-08 13:44 | GOP ---
[f rep st] OPERATIVE REPORT DATE OF OPERATION: SURGEON: Bety Buitrago MD PREOPERATIVE DIAGNOSIS: Renal failure. Morbid obesity. Need for line access for resuscitation. POSTOPERATIVE DIAGNOSIS: Renal failure. Morbid obesity. Need for line access for resuscitation. PROCEDURE PERFORMED: Right internal jugular central venous access for central venous catheter placem ent. FINDINGS: All ports flushed and summer. Vein accessed under direct visualization of the ultrasound an d noted to be patent without stenosis or thrombosis along its entire length in the neck. SPECIMENS: None. ESTIMATED BLOOD LOSS: 5 mL. INDICATIONS: Kelsey is a 61-year-old with multiple medical problems, who presented in acute renal failure. Resuscitation efforts have been difficult due to her body habitus, and triple lumen cathete r placement was requested. DESCRIPTION OF PROCEDURE: After informed consent was obtained and the area was prepped and draped st erilely, a SonoSite ultrasound was used to locate the right internal jugular vein. This was noted to be open without stenosis or thrombosis along its length in the neck. It was accessed with a finder needle under direct visualization, under ultrasound following local administration of local anestheti c. A small stab incision was then made at the venous access site, after the guidewire was threaded t hrough the needle and the needle removed. The tract was then dilated using a dilator over the guidew karthik which was then removed. A catheter was threaded into the jugular vein and the guidewire was marsha devante. The catheter was previously flushed with sterile saline. The 3 lumens were capped. These were noted to draw and flush without resistance. Biopatch was placed at the venous access site around th e catheter, and the catheter was secured in place using interrupted 3-0 silk sutures. A sterile Tega derm was placed over the catheter. Chest x-ray was performed which showed no pneumothorax, and the c atheter tip to be in good position in the atriocaval junction. /[id number]/MODL
[2016-07-08] MEDS ORDERED: MAGNESIUM HYDROXIDE 30 ML UDCUP PO PRN (17:44)
[2016-07-08] MEDS ORDERED: POLYETHYLENE GLYCOL 3350 17 GM PKT PO PRN (17:44)
[2016-07-08] MEDS ORDERED: LACTULOSE 20 GM/30 ML UDCUP PO PRN (17:44)
[2016-07-08] MEDS ORDERED: BISACODYL 10 MG SUPP PR PRN (17:44)
--- NOTE | 2016-07-08 18:35 | DX ---
Right ankle series 3 views portable 1808 hours. History: Right ankle pain following trauma. Findings: Comparison to August 16, 2012. Internal fixation plate is in stable position distal fibula along with small caliber compression scre ws medial malleolus. There is no evidence of acute fracture about the right ankle. There is some soft tissue swelling laterally. Hypertrophic osteophytes are seen in the medial and lateral aspect of the ankle joint as well as at the anterior ankle joint. Hypertrophic bridging osteophyte is also seen be tween the talus and naviculum. Moderate hypertrophic traction osteophyte is also seen at the Achilles tendon insertion along the calcaneus. The ankle mortise is narrowed. Impression: 1. No acute fracture seen about the right ankle. 2. Internal fixation hardware in stable position. 3. Degenerative changes about the ankle joint.
[2016-07-08] MEDS: SENNOSIDES/DOCUSATE SODIUM TAB PO SCH (21:40)
[2016-07-08] MEDS: oxyCODONE IR 5 MG TAB PO PRN (21:40)
[2016-07-08] MEDS: ATORVASTATIN CALCIUM 20 MG TAB PO SCH (21:40)
[2016-07-08] MEDS: HYOSCYAMINE SULFATE 0.125 MG TAB PO PRN (22:55)
[2016-07-09] MEDS: oxyCODONE IR 5 MG TAB PO PRN ×5 (02:37→23:43)
[2016-07-09] MEDS: INSULIN LISPRO 100 UNIT/ML SC SCH ×6 (02:37→21:31)
[2016-07-09] MEDS: NS 1,000 ML IV SCH ×3 (04:50→19:56)
[2016-07-09 05:27] LABS: ANION GAP 7 mEq/L (8-16); CALCIUM 8.7 mg/dL (8.5-10.4); CARBON DIOXIDE 31 mEq/l (22-31); CHLORIDE 105 mEq/L (97-110); CREATININE 1.8 mg/dL (0.6-1.0); GLOMERULAR FILTRATION RATE 28; GLUCOSE 171 mg/dL (70-100); POTASSIUM 4.1 mEq/L (3.5-5.2); SODIUM 143 mEq/L (134-144)
[2016-07-09] MEDS: LEVOTHYROXINE 100 MCG TAB PO SCH (06:00)
[2016-07-09] MEDS: HEPARIN 5,000 UNIT/0.5 ML SYR SC SCH (06:00)
[2016-07-09] MEDS: GABAPENTIN 400 MG CAP PO SCH ×4 (06:00→20:01)
[2016-07-09] MEDS: TIOTROPIUM INHALER 18 MCG/DOSE 5 DOSE/MDI IH SCH (08:59)
[2016-07-09] MEDS ORDERED: APIXABAN 2.5 MG TAB PO SCH (09:30)
--- NOTE | 2016-07-09 09:32 | HOSPPROG ---
Hospitalist Progress Note Assessment/Plan: 61 yo F w morbid obesity, dm, chronic narcotic use here w CP CP: neg trop, non ischemic ekg certainly at risk for CAD given rf profile CP ongoing discussed risks and benefits of stress test w her and she declines check lipids on asa + ddimer, h/o PE, not anticoagulated no DVT on R side, refused L side eval 1. echo poor quality- not helpful in PE eval 2. given AF and possible previous h/o CVA plus diabetes, will start systemic anticoag w eliquis 3. therefore, no further workup of PE MIRNA: improving w IVF suspect dry continue IVF at lower rate dominguez: dc AF: on amio w no anticoag she states she has had multiple admissions to to [facility] w AF I have requested records from [facility] for clarification CHADS Vasc probably 3 given previous h/o AF start eliquis DM: continue insulin and januvia follow today before uptitrating A1c 7.6 but uncontrolled here increase lantus and ss chronic narcotics: continue meds as they were prescribed at SNF proph: NOAC dispo: inpt uti: neg UA dc augmentin Subjective: cr improving. cxr w no chf, central line placement (interp by me). tele: no AF (interp by me) Objective: Vital Signs Temp Pulse Resp BP Pulse Ox 36.7 C 58 L 12 130/65 H 100 07/09/16 05:07 07/09/16 09:02 07/09/16 09:02 07/09/16 05:07 07/09/16 09:02 Laboratory Results 07/07/16 04:00 07/09/16 04:12 07/08/16 07/09/16 07/10/16 05:59 05:59 05:59 Intake Total 3200 4975 Output Total 2300 5200 Balance 900 -225 PT 13.3 SEC (12.0-15.0) 07/06/16 21:39 INR 1.02 (0.83-1.16) 07/06/16 21:39 - Physical Exam Constitutional: no apparent distress, appears nourished Eyes: PERRL, anicteric sclera Ears, Nose, Mouth, Throat: moist mucous membranes, hearing normal Cardiovascular: regular rate and rhythym, no murmur, rub, or gallop, No systolic murmur Respiratory: no respiratory distress, no rales or rhonchi Gastrointestinal: normoactive bowel sounds, soft, non-tender abdomen Genitourinary: dominguez in urethra Skin: warm, normal color Musculoskeletal: no muscle tenderness, No full muscle strength Neurologic: AAOx3 ICD10 Worksheet Patient Problems: Problems Problem Status Diagnosed Atrial fibrillation Acute Chest pain Acute Obesity hypoventilation syndrome Acute Overdose Acute Seizure Acute UTI (lower urinary tract infection) Acute
[2016-07-09] MEDS: CETIRIZINE 10 MG TAB PO SCH (09:38)
[2016-07-09] MEDS: AMIODARONE HCL 200 MG TAB PO SCH (09:38)
[2016-07-09] MEDS: FAMOTIDINE 20 MG TAB PO SCH (09:38)
[2016-07-09] MEDS: ASPIRIN 81 MG CHEWABLE TAB PO SCH (09:39)
[2016-07-09] MEDS: SENNOSIDES 1 TAB PO SCH ×2 (09:39→20:01)
[2016-07-09] MEDS: HYOSCYAMINE SULFATE 0.125 MG TAB PO PRN (09:39)
[2016-07-09] MEDS: LIDOCAINE 5% 1 EA PATCH TD SCH (09:41)
[2016-07-09] MEDS: APIXABAN 5 MG TAB PO SCH ×2 (09:51→20:01)
[2016-07-09] MEDS: SENNOSIDES/DOCUSATE SODIUM TAB PO SCH ×2 (10:03→21:46)
[2016-07-09] MEDS: INSULIN GLARGINE 100 UNITS/ML SYRINGE SC SCH ×3 (10:05→21:30)
[2016-07-09] MEDS: ESTRADIOL 42.5 GM CRTUBE VG SCH ×2 (10:11→10:17)
[2016-07-09] MEDS: NYSTATIN POWDER 15 GM BTL TP SCH ×2 (10:39→20:01)
--- NOTE | 2016-07-09 12:49 | WOCRNPDOC ---
ADAN Advanced Assessment Note - Skin Integrity Problem, Advanced Assess Gluteal Cleft Incont Assoc Dermatitis Dressing Type: Open to Air Exudate Amount: None Exudate Characteristic(s): None Crista Wound Tissue: Blanching, Erythema Wound Bed Color: Red Wound Bed Constitution: Smooth Tissue Site Odor: None Site Measurement - Head-to-Toe Length X Width X Depth (cm): 2.5cmx3.5cmx0.1cm Skin Integrity Problem Comment: Raw, denuded, shiny skin noted in patient's upper gluteal cleft, consistent in appearance w/ incontinence or moisture- associated dermatitis. Patient reports having a "bed sore" to this site previously. There is no scar tissue present, so I am unable to ascertain if this statement is accurate. Advised communications technician Juana to place Interdry sheet in patient's gluteal cleft to help better manage moisture. Also spoke with patient about off-loading her coccyx and sacrum by positioning herself on her R or L side.
[2016-07-09] MEDS: ATORVASTATIN CALCIUM 20 MG TAB PO SCH (20:01)
[2016-07-10] MEDS: INSULIN LISPRO 100 UNIT/ML SC SCH ×3 (03:12→10:52)
[2016-07-10 03:43] LABS: ANION GAP 7 mEq/L (8-16); CALCIUM 8.6 mg/dL (8.5-10.4); CARBON DIOXIDE 29 mEq/l (22-31); CHLORIDE 105 mEq/L (97-110); CREATININE 1.7 mg/dL (0.6-1.0); GLOMERULAR FILTRATION RATE 30; GLUCOSE 240 mg/dL (70-100); POTASSIUM 5.2 mEq/L (3.5-5.2); SODIUM 141 mEq/L (134-144)
[2016-07-10 04:23] VITALS: RESP 20
[2016-07-10] MEDS: GABAPENTIN 400 MG CAP PO SCH (06:07)
[2016-07-10] MEDS: oxyCODONE IR 5 MG TAB PO PRN (06:07)
[2016-07-10] MEDS: LEVOTHYROXINE 100 MCG TAB PO SCH (06:07)
[2016-07-10] MEDS: TIOTROPIUM INHALER 18 MCG/DOSE 5 DOSE/MDI IH SCH (08:11)
[2016-07-10] MEDS: SENNOSIDES/DOCUSATE SODIUM TAB PO SCH (08:56)
[2016-07-10] MEDS: APIXABAN 5 MG TAB PO SCH (08:57)
[2016-07-10] MEDS: AMIODARONE HCL 200 MG TAB PO SCH (08:57)
[2016-07-10] MEDS: FAMOTIDINE 20 MG TAB PO SCH (08:57)
[2016-07-10] MEDS: ASPIRIN 81 MG CHEWABLE TAB PO SCH (08:57)
[2016-07-10] MEDS: CETIRIZINE 10 MG TAB PO SCH (08:57)
[2016-07-10] MEDS: NYSTATIN POWDER 15 GM BTL TP SCH (08:59)
[2016-07-10] MEDS: LIDOCAINE 5% 1 EA PATCH TD SCH (08:59)
[2016-07-10] MEDS: SENNOSIDES 1 TAB PO SCH (09:00)
--- NOTE | 2016-07-10 09:06 | HOSPPROG ---
Hospitalist Progress Note Assessment/Plan: 61 yo F w morbid obesity, dm, chronic narcotic use here w CP renal mass: will attempt to obtain old records CT here in 02/17 w boggy L kidney but no mass will get images from [place] CT and follow up w brooke schroeder MD not a candidate for nephrectomy CP: neg trop, non ischemic ekg certainly at risk for CAD given rf profile CP ongoing discussed risks and benefits of stress test w her and she declines check lipids on asa + ddimer, h/o PE, not anticoagulated no DVT on R side, refused L side eval 1. echo poor quality- not helpful in PE eval 2. given AF and possible previous h/o CVA plus diabetes, will start systemic anticoag w eliquis 3. therefore, no further workup of PE MIRNA: improving w IVF suspect dry continue IVF at lower rate alberto: smiley AF: on amio w no anticoag she states she has had multiple admissions to to [facility] w AF I have requested records from [facility] for clarification CHADS Vasc probably 3 given previous h/o AF start eliquis DM: continue insulin and januvia follow today before uptitrating A1c 7.6 but uncontrolled here increase lantus and ss chronic narcotics: continue meds as they were prescribed at proph: NOAC dispo: to SNF today uti: neg UA dc augmentin Subjective: mentions mass on L kidney seen at [place]. has had R nephrectomy. this was noted 6 months ago w no follow up Objective: Vital Signs Temp Pulse Resp BP Pulse Ox 36.9 C 70 20 139/66 H 99 07/10/16 04:00 07/10/16 08:16 07/10/16 08:16 07/10/16 04:00 07/10/16 08:16 Laboratory Results 07/07/16 04:00 07/10/16 03:22 07/09/16 07/10/16 07/11/16 05:59 05:59 05:59 Intake Total 4975 3703 Output Total 5200 1350 Balance -225 2353 PT 13.3 SEC (12.0-15.0) 07/06/16 21:39 INR 1.02 (0.83-1.16) 07/06/16 21:39 - Physical Exam Constitutional: no apparent distress, appears nourished Eyes: PERRL, anicteric sclera Ears, Nose, Mouth, Throat: moist mucous membranes, hearing normal Cardiovascular: regular rate and rhythym, no murmur, rub, or gallop Respiratory: no respiratory distress, no rales or rhonchi Gastrointestinal: normoactive bowel sounds, soft, non-tender abdomen Genitourinary: no bladder fullness, No dominguez in urethra Skin: warm, normal color Musculoskeletal: full muscle strength, no muscle tenderness Neurologic: AAOx3 Psychiatric: interacting appropriately, not anxious ICD10 Worksheet Patient Problems: Problems Problem Status Diagnosed Atrial fibrillation Acute Chest pain Acute Obesity hypoventilation syndrome Acute Overdose Acute Seizure Acute UTI (lower urinary tract infection) Acute
[2016-07-10] MEDS: INSULIN GLARGINE 100 UNITS/ML SYRINGE SC SCH (09:07)
[2016-07-10 09:12] VITALS: BP 137/95; PULSE 66; TEMP 97.8; O2SAT 96
--- NOTE | 2016-07-10 09:26 | PDIAF ---
- Diagnosis Diagnosis: acute kidney injury Code Status: Full Code - Medication Management Discharge Medications: Medications to Continue on Transfer Aspirin [Aspirin 81mg (*)] 81 mg PO DAILY 07/20/13 [Last Taken 02/14/14] Furosemide [Lasix 40 MG (*)] 40 mg PO BIDDIUR 07/20/13 [Last Taken 01/31/14] Lidocaine 5% [Lidoderm 5% Patch (*)] 1 - 2 ea TD DAILY 07/20/13 [Last Taken ] Levothyroxine [Synthroid 100 mcg (*)] 100 mcg PO DAILY06 12/22/13 [Last Taken 09:00] Albuterol [Proventil Neb] 2.5 mg IH Q6 PRN 02/14/14 [Last Taken Unknown] Nystatin [Nyamyc] 1 sonny TP BID 02/14/14 [Last Taken Unknown] Ondansetron HCl [Zofran] 4 mg PO Q6 PRN 02/14/14 [Last Taken Unknown] Acetaminophen [Tylenol 325mg (*)] 650 mg PO Q4 PRN 07/07/16 [Last Taken Unknown] Amiodarone HCl [Pacerone (*)] 200 mg PO DAILY 07/07/16 [Last Taken Unknown] Atorvastatin Calcium [Lipitor 20 mg (*)] 20 mg PO HS 07/07/16 [Last Taken Unknown] Estradiol [Estrace Vaginal (*)] 1 gm VG TUSA 07/07/16 [Last Taken Unknown] Gabapentin [Neurontin 400 MG (*)] 400 mg PO QID 07/07/16 [Last Taken Unknown] Herbals/Supplements -Info Only 1 ea PO DAILY 07/07/16 [Last Taken Unknown] Hyoscyamine Sulfate [Levsin, Hyomax-Sl 0.125 mg (*)] 0.125 mg PO Q8HRS PRN 07/07 [Last Taken Unknown] Insulin Lispro [humALOG LISPRO 100 units/ml (*)] 8 unit SC AD 07/07/16 [Last Taken Unknown] Loratadine [Claritin 10 mg] 10 mg PO DAILY 07/07/16 [Last Taken Unknown] Ranitidine HCl 150 mg PO DAILY 07/07/16 [Last Taken Unknown] Sennosides [Senokot] 1 each PO BID 07/07/16 [Last Taken Unknown] Sodium Cl Nasal [[place] (*)] 1 spray [place] Q2HRS PRN 07/07/16 [Last Taken Unknown] Tiotropium Inhaler [Spiriva Handihaler] 18 mcg IH DAILY 07/07/16 [Last Taken Unknown] oxyCODONE IR [Oxycodone Ir (*)] 10 mg PO Q6HRS PRN 07/07/16 [Last Taken Unknown] sitaGLIPtin PHOSPHATE [Januvia 100 MG (*)] 100 mg PO DAILY 07/07/16 [Last Taken Unknown] Apixaban [Eliquis] 5 mg PO BID #0 tab 07/10/16 [Last Taken Unknown] Insulin Glargine [Lantus 100 UNITS/ML (*)] 32 units SC BID #0 ml 07/10/16 [Last Taken Unknown] Discharge Medications: Refer to the Discharge Home Medication list for PRN reason. - Orders Services needed: Registered Nurse, Certified Od Grinder Operator, Physical Therapy, Occupational Therapy Diet Recommendation: ADA 1800 consistent carb Diet Texture: Regular Texture Diet - Follow Up Care Current Providers and Referrals: KIRTI ACEVEDO [Primary Care Provider] - As per Instructions
--- NOTE | 2016-07-10 09:44 | GDS ---
[f rep st] DISCHARGE SUMMARY DISCHARGE DIAGNOSES: 1. Acute kidney injury secondary to uncontrolled diabetes and diuretic therapy. 2. Uncontrolled diabetes, with elevated blood sugars in the 300s. 3. Chronic obstructive pulmonary disease. 4. Chronic respiratory failure. 5. Morbid obesity. 6. Continuous narcotic dependence. 7. Chronic kidney disease, status post right nephrectomy. 8. Hypothyroidism. 9. Chronic pain. 10. Mood disorder. 11. Remote history of pulmonary embolism. 12. Atrial fibrillation. HOSPITAL COURSE: Please see admission history and physical by Dr. Kalyn Rashid. Patient petros vick from [facility] where she is living with chest pain. Regarding her chest pain, she had serial negative troponins. She had negative ultrasounds of her leg s. Initially CT was not performed given her acute kidney injury with a creatinine of 2.8. I discuss ed the risks and benefits of stress test with her, and she declined. Pulmonary embolism was not ruled out. See next paragraph. The patient has history of atrial fibrillation, was not documented here, but she describes it at [facility]. She is currently on amiodarone. Given her previous history of stroke and nirav catherine, her CHADS-VASc is 3 which warrants anticoagulation, I started Eliquis on her. Uncontrolled diabetes. She had a hemoglobin A1c of 7.6, but blood sugars in the 300s here, I uptitra nava her insulin. The patient had no obvious source of SIRS or other things which would have short-te rm driven up her blood sugars. I suspect she may have a bit of pancreatic burnout given her longstan ding morbid obesity. Chronic kidney disease. The patient presented with a creatinine of 2.8. Her baseline is in the mid 1's, although she has not been here at [facility] in 2 years. On the day of discharge, the patient mentions a mass in the left kidney. I reviewed our imaging and it showed a boggy left kidney and a surgically absent right kidney. She says this is over 6 months ago and there has been no followup. At this point in time, I have requested records from [facility] to further characterize this, and will communicate with physicians at [facility] regard ing starting some followup. Notably, she is not a candidate for nephrectomy given her current [facility] kidney issues. Regarding her diabetes, her insulin was titrated from 20 b.i.d. to 32 b.i.d. of long-acting insulin. She remains on short-acting insulin and Januvia. Discharge status is back to [facility]. /[id number]/MODL
== END 2016-07-10 11:39 | DRG 313 ==
LOC: EDUNIT# → OBSVTOIN 23:23 → F2W 07-07 00:37
PROVIDERS: ADMIT Internal Medicine; ATTEND Internal Medicine
PROC: 02HV33Z Insertion of Infusion Device into Superior Vena Cava, Percutaneous Approach (ICD-10-PCS; principal; 2016-07-08)
DX: R07.89 Other chest pain (principal); J96.10 Chronic respiratory failure, unspecified whether with hypoxia or hypercapnia; N17.9 Acute kidney failure, unspecified; E11.65 Type 2 diabetes mellitus with hyperglycemia; J44.9 Chronic obstructive pulmonary disease, unspecified; N18.9 Chronic kidney disease, unspecified; I12.9 Hypertensive chronic kidney disease with stage 1 through stage 4 chronic kidney disease, or unspecified chronic kidney disease; E03.9 Hypothyroidism, unspecified; F11.20 Opioid dependence, uncomplicated; E66.01 Morbid (severe) obesity due to excess calories; Z68.43 Body mass index [BMI] 50.0-59.9, adult; Z99.81 Dependence on supplemental oxygen
CPT/HCPCS: 97162-GP; 97166-GO; 97530-GO; 97535-GO; G8978-GP-CK; G8979-GP-CJ; G8987-GO-CL; G8988-GO-CK; J1815

== ENCOUNTER 2016-07-11 05:24 | Emergency (ER) | payer OTHER, MEDICAID ==
--- NOTE | 2016-07-11 05:30 | EDPHY ---
H & P HPI/ROS: HPI CHIEF COMPLAINT: Right lateral hip pain, right knee pain Status post fall out of bed HISTORY OF PRESENT ILLNESS: this patient is 61-year-old female she does have significant past medical history for chronic renal failure, diabetes, recent acute kidney injury, COPD, chronic pain, mood disorder, AFib, pulmonary embolism hypertension and hyperlipidemia, was recently hospitalized here and discharged yesterday after hyperglycemia, acute kidney injury and chest pain evaluation. She presents here to the emergency room at 5:30 a.m. in the morning by ambulance after she had a mechanical fall out of her bed landing on her right knee and right hip. She now has right knee pain and right hip pain. She tells me that she rolled out of her bed landing on the right side. It is noted she is not ambulatory at baseline. She does not walk. She tells me she has 6/10 right knee pain, 6/10 right lateral hip pain. she did take oxycodone prior to arrival. Upon here she is complaining of pain however she does appear sleepy. Past Medical History: multiple significant medical problems including diabetes , COPD, chronic renal failure, morbid obesity, narcotic dependency, chronic pain , mood disorder, PE, AFib, on Eliquis, hypertension Social History: lives at [facility] denies use of daily drug use alcohol tobacco Family History: noncontributory ROS REVIEW OF SYSTEMS: A comprehensive 10 point review of systems is otherwise negative aside from elements mentioned in the history of present illness. Exam Constitutional nontoxic appearing, sleepy triage nursing summary reviewed, vital signs reviewed Eyes normal conjunctivae and sclera, EOMI, PERRLA. HENT normal inspection, atraumatic, moist mucus membranes, no epistaxis, neck supple/ no meningismus, no raccoon eyes. Respiratory clear to auscultation bilaterally, normal breath sounds, no respiratory distress, no wheezing. Cardiovascular rate normal, regular rhythm, no murmur, no edema, distal pulses normal. Gastrointestinal soft, non-tender, no rebound, no guarding, normal bowel sounds, no distension, no pulsatile mass. Genitourinary no CVA tenderness. Musculoskeletal bilateral lower extremity chronic venous stasis changes, bilateral lower extremity edema chronic, full range of motion of the right knee , distally neurovascularly intact, no significant signs of trauma on exam of the hip or of the knee specifically I do not appreciate any swelling, ecchymosis or trauma from the fall she is tender on the lateral right hip. Her leg does not appear shortened or rotated. no midline vertebral tenderness, full range of motion, no calf swelling, no tenderness of extremities, no meningismus , good pulses, neurovascularly intact. Skin pink, warm, & dry, no rash, skin atraumatic. Neurologic awake, alert and oriented x 3, AAOx3, moves all 4 extremities equally, motor intact, sensory intact, CN II-XII intact, normal cerebellar, normal vision, normal speech. Psychiatric normal mood/affect. Heme/Lymph/Immune no lymphadenopathy. Differential Diagnosis: Includes but is not limited to in a particular order, contusion, soft tissue injury, pelvis fracture, hip fracture, right knee fracture, right knee contusion. Medical Decision Making: Patient is asking for IV morphine I explained we will x-ray her right hip and knee she can have another dose of oxycodone however I do not want to give her IV narcotics as she does appears slightly sleepy and may be overmedicated with pain medicine. I have concern about her narcotic use. Re-evaluation: Source: Patient, EMS - Personal History Tetanus Vaccine Date: 2011 - Medical/Surgical History Hx Asthma: Yes Hx Chronic Respiratory Disease: Yes Hx Diabetes: Yes Hx Cardiac Disease: Yes Hx Renal Disease: Yes Hx Cirrhosis: No Hx Alcoholism: No Hx HIV/AIDS: No Hx Splenectomy or Spleen Trauma: No Other PMH: DIABETIC GASTROPARESIS WITH HEMATEMESIS, HYPOTHYROID,TRAUMATIC BRAIN INJURY,FACET HYPERTROPHY OF LOWER BACK AND NEURITIS OF CERVICLE AREA, KIDNEY STONES,APPY, HYSTERECTOMY,CHOLECYSTECTOMY, R. NEPHRECTOMY,FIRST RIB REMOVED, THORACIC OUTLET SYNDROM, NASAL SURGERY, SLEEP HYPOXIA,ARRYTHMIA, RESTRICTIVE LUNG DISEASE, PULMONARY HYPERTENSION, HEMANGIOMA BEHIND L EAR - Social History Smoking Status: Never smoked Constitutional: Initial Vital Signs Heart Rate 59 L 07/11/16 05:30 Respiratory Rate 18 07/11/16 05:30 Blood Pressure 137/75 H 07/11/16 05:30 O2 Sat (%) 98 07/11/16 05:30 O2 Delivery Mode Nasal Cannula O2 (L/minute) 4 Allergies/Adverse Reactions: ciprofloxacin [From Cipro] Allergy (Verified 07/11/16 05:45) ciprofloxacin HCl [From Cipro] Allergy (Verified 07/11/16 05:45) droperidol [From Inapsine] Allergy (Verified 07/11/16 05:45) prochlorperazine Allergy (Verified 07/11/16 05:45) prochlorperazine edisylate [From Compazine] Allergy (Verified 07/11/16 05:45) prochlorperazine maleate [From Compazine] Allergy (Verified 07/11/16 05:45) Home Medications: Medication Instructions Recorded Aspirin [Aspirin 81mg (*)] 81 mg PO DAILY 07/20/13 Furosemide [Lasix 40 MG (*)] 40 mg PO BIDDIUR 07/20/13 Lidocaine 5% [Lidoderm 5% Patch 1 - 2 ea TD DAILY 07/20/13 (*)] Levothyroxine [Synthroid 100 mcg 100 mcg PO DAILY06 12/22/13 (*)] Albuterol [Proventil Neb] 2.5 mg IH Q6 PRN 02/14/14 Nystatin [Nyamyc] 1 sonny TP BID 02/14/14 Ondansetron HCl [Zofran] 4 mg PO Q6 PRN 02/14/14 Acetaminophen [Tylenol 325mg (*)] 650 mg PO Q4 PRN 07/07/16 Amiodarone HCl [Pacerone (*)] 200 mg PO DAILY 07/07/16 Atorvastatin Calcium [Lipitor 20 20 mg PO HS 07/07/16 mg (*)] Estradiol [Estrace Vaginal (*)] 1 gm VG TUSA 07/07/16 Gabapentin [Neurontin 400 MG (*)] 400 mg PO QID 07/07/16 Herbals/Supplements -Info Only 1 ea PO DAILY 07/07/16 Hyoscyamine Sulfate [Levsin, 0.125 mg PO Q8HRS PRN 07/07/16 Hyomax-Sl 0.125 mg (*)] Insulin Lispro [humALOG LISPRO 100 8 unit SC AD 07/07/16 units/ml (*)] Loratadine [Claritin 10 mg] 10 mg PO DAILY 07/07/16 Ranitidine HCl 150 mg PO DAILY 07/07/16 Sennosides [Senokot] 1 each PO BID 07/07/16 Sodium Cl Nasal [[place] (*)] 1 spray [place] Q2HRS PRN 01/01/17 Tiotropium Inhaler [Spiriva 18 mcg IH DAILY 07/07/16 Handihaler] oxyCODONE IR [Oxycodone Ir (*)] 10 mg PO Q6HRS PRN 07/07/16 sitaGLIPtin PHOSPHATE [Januvia 100 100 mg PO DAILY 07/07/16 MG (*)] Apixaban [Eliquis] 5 mg PO BID #0 tab 07/10/16 Insulin Glargine [Lantus 100 32 units SC BID #0 ml 07/10/16 UNITS/ML (*)] Medical Decision Making - Data Points Medications Given: Discontinued Medications Ibuprofen (Motrin) 600 mg PO EDNOW ONE Stop: 07/11/16 06:11 Last Admin: 07/11/16 06:13 Dose: 600 mg Oxycodone/Acetaminophen (Percocet 5/325) 1 tab PO EDNOW ONE Stop: 07/11/16 06:11 Last Admin: 07/11/16 06:12 Dose: 1 tab Departure - Departure Disposition: Home, Routine, Self-Care Clinical Impression: Fall Qualifiers: Encounter type: initial encounter Qualifier Code: (W19.XXXA) Unspecified fall, initial encounter Condition: Good Instructions: Fall Prevention for Older Adults (ED)
[2016-07-11 05:51] VITALS: RESP 18
[2016-07-11] MEDS ORDERED: OXYCODONE/APAP 5/325 TAB ONE (06:04)
[2016-07-11] MEDS ORDERED: IBUPROFEN 600 MG TAB PO ONE ×2 (06:07→06:10)
[2016-07-11] MEDS ORDERED: OXYCODONE/APAP 5/325 TAB PO ONE (06:10)
[2016-07-11 06:58] VITALS: BP 127/87; PULSE 64; TEMP 98.6; O2SAT 100
--- NOTE | 2016-07-11 08:16 | DX ---
Right hip series 2 views 0549 hours. History: Pain following fall. Findings: The images degraded secondary to patient's large body habitus. No acute fracture is appreci ated about the pelvis with attention to the right hip. There is mild hip joint space narrowing bilate rally. The SI joints and symphysis appear to be normal. Bowel loops extend over the right hip probabl y related to abdominal pannus containing bowel. Right-sided hernia is felt to be less likely. Impression: 1. No acute fracture seen about the pelvis with attention right hip. 2. Mild hip joint space narrowing bilaterally. 3. Bowel loops projected over the right hip probably related to pannus within the abdomen and less li leanna a associate with a hernia. Clinical correlation recommended.
--- NOTE | 2016-07-11 08:17 | DX ---
Right Knee, Three Views Clinical Indication: Pain, trauma. Findings: There is mild to moderate joint space narrowing, worst in the medial compartment. There is moderate osteoarthritic change of the patellofemoral compartment. Soft tissue swelling is noted over the lateral thigh. No evidence of a fracture. Impression: 1. Osteoarthritis, worst in the medial compartment. 2. Soft tissue swelling.
== END 2016-07-11 07:33 | disposition home or self-care (01) ==
LOC: EDUNIT#
DX: S79.911A Unspecified injury of right hip, initial encounter (principal); J44.9 Chronic obstructive pulmonary disease, unspecified; E11.9 Type 2 diabetes mellitus without complications; Z79.82 Long term (current) use of aspirin; Z79.4 Long term (current) use of insulin; W06.XXXA Fall from bed, initial encounter

== ENCOUNTER 2016-07-15 13:18 | Inpatient (IN) | payer OTHER, MEDICAID ==
--- NOTE | 2016-07-15 13:18 | EDPHY ---
H & P Time Seen by Provider: 07/15/16 13:18 HPI/ROS: CHIEF COMPLAINT: High blood sugar HISTORY OF PRESENT ILLNESS: Patient presents with high blood sugar from [facility]. She states that it was very high and she has associated nausea and vomiting. She received Lantus at [facility] and initially it was too high for the EMS glucometer, or, the last on the EMS glucometer was greater than 598. Patient denies hematemesis or coffee-ground emesis or melena. Says symptoms are moderate. Started within the past 24 hours. REVIEW OF SYSTEMS: Eye: no change in vision ENT: no sore throat Cardiac: no chest pain or syncope Pulmonary: no cough or SOB Abdomen: No abdominal pain or diarrhea Musculoskeletal: no back pain Skin: Chronic bilateral venous stasis changes Neuro: Mild headache not worst of life or thunderclap in onset. No jerking or seizure activity today Constitutional: no fever : no urinary symptoms A comprehensive 10 point review of systems is otherwise negative aside from elements mentioned in the history of present illness. PAST MEDICAL HISTORY: Discharge summary dated 07/10/2016, personally reviewed by myself. Includes acute kidney injury, diabetes, COPD with chronic respiratory failure and 4 L oxygen baseline. Morbid obesity, right nephrectomy, hypothyroid, chronic pain. History of pulmonary embolism in atrial fibrillation. Social history: [facility] resident, nonsmoker General Appearance: Alert and conversant, cooperative. Eyes: No scleral icterus. ENT, Mouth: Normal mucous membranes. Respiratory: Normal respiratory effort, breath sounds equal, lungs are clear to auscultation. Cardiovascular: Regular rate and rhythm. Gastrointestinal: Abdomen is soft and non tender. Obese. Neurological: Alert and oriented x3. Normally conversant. Face symmetric, normal movement and sensation in all extremities. Skin: Bilateral venous stasis changes both extremities without calf tenderness , and soft compartments present. Very slight skin breakdown sacral area without evidence of cellulitis. Patient has scarring in the right IJ and right subclavian areas from previous port placement. Musculoskeletal: No peripheral edema and no joint swelling. Psychiatric: Not agitated. Emergency Department course/MDM: Labs to include chemistries, serum glucose, cath urine. EKG. 1616: creat resulted at 2.4, glucose greater than 500. Insulin 10 units IV, 2 liters NS IV. Not in DKA. Phenergan 12.5 mg IV through central line for nausea. Appears to have dehydration and evidence of renal failure with creatinine elevated, hyperglycemia. Does not appear to have acute UTI. Patient is at her baseline hypoxia and does not have respiratory symptoms, in no wheezing or rales on examination. Admission for rehydration, monitoring of renal function, control of glucose. Constitutional: Initial Vital Signs Temperature (C) 36.9 C 07/15/16 13:30 Heart Rate 68 07/15/16 13:30 Respiratory Rate 19 07/15/16 13:30 Blood Pressure 136/59 H 07/15/16 13:30 O2 Sat (%) 96 07/15/16 13:30 O2 Delivery Mode Room Air O2 (L/minute) 4 Allergies/Adverse Reactions: ciprofloxacin [From Cipro] Allergy (Verified 07/15/16 13:30) ciprofloxacin HCl [From Cipro] Allergy (Verified 07/15/16 13:30) droperidol [From Inapsine] Allergy (Verified 07/15/16 13:30) prochlorperazine Allergy (Verified 07/15/16 13:30) prochlorperazine edisylate [From Compazine] Allergy (Verified 07/15/16 13:30) prochlorperazine maleate [From Compazine] Allergy (Verified 07/15/16 13:30) Home Medications: Medication Instructions Recorded Aspirin [Aspirin 81mg (*)] 81 mg PO DAILY 07/20/13 Furosemide [Lasix 40 MG (*)] 40 mg PO BIDDIUR 07/20/13 Lidocaine 5% [Lidoderm 5% Patch 1 ea TD DAILY 07/20/13 (*)] Levothyroxine [Synthroid 100 mcg 100 mcg PO DAILY06 12/22/13 (*)] Nystatin [Nyamyc] 1 sonny TP BID 02/14/14 Acetaminophen [Tylenol 325mg (*)] 650 mg PO Q4 PRN 07/07/16 Amiodarone HCl [Pacerone (*)] 200 mg PO DAILY 07/07/16 Atorvastatin Calcium [Lipitor 20 20 mg PO HS 07/07/16 mg (*)] Estradiol [Estrace Vaginal (*)] 1 gm VG TUSA 07/07/16 Gabapentin [Neurontin 400 MG (*)] 400 mg PO QID 07/07/16 Herbals/Supplements -Info Only 1 ea PO DAILY 07/07/16 Hyoscyamine Sulfate [Levsin, 0.125 mg PO Q8HRS PRN 07/07/16 Hyomax-Sl 0.125 mg (*)] Insulin Lispro [humALOG LISPRO 100 12 unit SC AD 07/07/16 units/ml (*)] Loratadine [Claritin 10 mg] 10 mg PO DAILY 07/07/16 Ranitidine HCl 150 mg PO DAILY 07/07/16 Sennosides [Senokot] 1 each PO BID 07/07/16 Sodium Cl Nasal [[place] (*)] 1 spray EACHNARE Q2HRS PRN 07/07/16 Tiotropium Inhaler [Spiriva 18 mcg IH DAILY 07/07/16 Handihaler] oxyCODONE IR [Oxycodone Ir (*)] 10 mg PO TID PRN 07/07/16 sitaGLIPtin PHOSPHATE [Januvia 100 100 mg PO DAILY 07/07/16 MG (*)] Apixaban [Eliquis] 5 mg PO BID #0 tab 07/10/16 Albuterol [Proventil Neb] 3 ml IH Q6 PRN 07/15/16 Insulin Detemir [Levemir Flextouch] 36 unit SQ BID 07/15/16 Ondansetron HCl [Zofran] 4 mg PO Q6 PRN 07/15/16 oxyCODONE IR [Oxycodone Ir (*)] 10 mg PO DAILY PRN 07/15/16 Medical Decision Making - Diagnostics EKG Interpretation: 12-lead EKG interpreted by me; official reading is in trace master. My interpretation is sinus rhythm, 84, normal intervals. Procedures: Procedure: Central line placement. Indication: Poor vascular access and hyperglycemia, the nurses unable to get peripheral access. IR tells me she is on their list of patients who are ineligible for PICC line placement because of previous procedures. Risks, benefits, alternatives discussed with the patient including but not limited to bleeding, infection, vascular injury, and collapsed lung and consent obtained. A timeout was observed. Full maximal sterile barrier technique was used including cap, gown, sterile gloves, large sheet, hand washing and chlorhexidine prep. The area was anesthetized with 1% lidocaine. A 7 Khmer triple lumen was placed in the right femoral vein using standard Seldinger technique on a single attempt. There were no complications. Blood return low pressure, dark blood. Patient tolerated procedure well. The procedure was performed by myself. Consult/Admit Bed Type: [place] [address] Critical Care Time: Critical care time spent by me, Dr. Hyman, exclusively with the care of this patient was 30 minutes, exclusive of PA or PEDIATRIC SPORTS MEDICINE SPECIALIST time and exclusive of separate procedures. The organ system at risk was metabolic and I ordered IV normal saline hydration, IV insulin, multiple diagnostics, discussion with hospitalist physician Dr. Velásquez, to stabilize the patient and prevent worsening of the patient's condition. - Data Points Laboratory Results: Laboratory Results 07/15/16 14:58 07/15/16 14:58 07/15/16 07/15/16 07/15/16 14:58 14:57 14:15 WBC 7.50 10^3/uL (3.80-9.50) RBC 3.73 L 10^6/uL (4.18-5.33) Hgb 10.5 L g/dL (12.6-16.3) POC Hgb 11.9 L gm/dL (12.3-15.9) Hct 31.9 L % (38.0-47.0) POC Hct 35 L % (35.5-47.5) MCV 85.5 fL (81.5-99.8) MCH 28.2 pg (27.9-34.1) MCHC 32.9 g/dL (32.4-36.7) RDW 15.3 H % (11.5-15.2) Plt Count 118 L 10^3/uL (150-400) MPV 11.2 fL (8.7-11.7) Neut % (Auto) 78.3 H % (39.3-74.2) Lymph % (Auto) 13.2 L % (15.0-45.0) [place] % (Auto) 5.9 % (4.5-13.0) Eos % (Auto) 1.1 % (0.6-7.6) Baso % (Auto) 0.3 % (0.3-1.7) Nucleat RBC Rel Count 0.0 % (0.0-0.2) Absolute Neuts (auto) 5.88 10^3/uL (1.70-6.50) Absolute Lymphs (auto) 0.99 L 10^3/uL (1.00-3.00) Absolute Monos (auto) 0.44 10^3/uL (0.30-0.80) Absolute Eos (auto) 0.08 10^3/uL (0.03-0.40) Absolute Basos (auto) 0.02 10^3/uL (0.02-0.10) Absolute Nucleated RBC 0.00 10^3/uL (0-0.01) Immature Gran % 1.2 H % (0.0-1.1) Immature Gran # 0.09 10^3/uL (0.00-0.10) POC Sodium 131 L mEq/L (134-144) Sodium 130 L mEq/L (134-144) POC Potassium 4.1 mEq/L (3.3-5.0) Potassium 4.3 mEq/L (3.5-5.2) POC Chloride 87 L mEq/L (96-108) Chloride 87 L mEq/L (97-110) Carbon Dioxide 32 H mEq/l (22-31) Anion Gap 11 mEq/L (8-16) POC BUN 40 H mg/dL (7-23) BUN 42 H mg/dL (7-23) Creatinine 2.4 H mg/dL (0.6-1.0) POC Creatinine 2.4 H mg/dL (0.6-1.2) Estimated GFR 20 Glucose 543 H* mg/dL (70-100) POC Glucose 526 H* mg/dL (70-100) Calcium 8.8 mg/dL (8.5-10.4) Urine Color PALE YELLOW Urine Appearance CLEAR Urine pH 7.0 (5.0-7.5) Ur Specific [place] 1.010 (1.002-1.030) Urine Protein NEGATIVE (NEGATIVE) Urine Ketones NEGATIVE (NEGATIVE) Urine Blood 1+ H (NEGATIVE) Urine Nitrate NEGATIVE (NEGATIVE) Urine Bilirubin NEGATIVE (NEGATIVE) Urine Urobilinogen NEGATIVE EU (0.2-1.0) Ur Leukocyte Esterase 2+ H (NEGATIVE) Urine RBC 1-3 /hpf (0-3) Urine WBC 1-3 /hpf (0-3) Ur Epithelial Cells NONE SEEN /lpf (NONE-1+) Ur Culture Indicated? INDICATED H (NI) Urine Glucose 3+ H (NEGATIVE) Medications Given: Discontinued Medications Sodium Chloride (Ns) 1,000 mls @ 0 mls/hr IV ONCE ONE PRN Reason: Wide Open Stop: 07/15/16 13:30 Last Admin: 07/15/16 15:01 Dose: 1,000 mls Sodium Chloride (Ns) 1,000 mls @ 0 mls/hr IV ONCE ONE PRN Reason: Wide Open Stop: 07/15/16 16:17 Last Admin: 07/15/16 16:39 Dose: 1,000 mls Sodium Chloride (Ns) 1,000 mls @ 0 mls/hr IV ONCE ONE PRN Reason: Wide Open Stop: 07/15/16 16:17 Last Admin: 07/15/16 16:39 Dose: 1,000 mls Sodium Chloride (Ns) 1,000 mls @ 3,000 mls/hr IV ONCE ONE Stop: 07/15/16 16:49 Last Admin: 07/15/16 18:07 Dose: Not Given Insulin Human Regular (Humulin R) 10 unit IVP EDNOW ONE Stop: 07/15/16 16:18 Last Admin: 07/15/16 16:38 Dose: 10 units Promethazine HCl (Phenergan Injection) 12.5 mg IVP ONCE ONE Stop: 07/15/16 15:05 Last Admin: 07/15/16 15:08 Dose: 12.5 mg Point of Care Test Results: 07/15/16 14:57 POC Sodium 131 L POC Potassium 4.1 POC Chloride 87 L POC BUN 40 H POC Creatinine 2.4 H POC Glucose 526 H* Departure - Departure Disposition: [facility] Acute Clinical Impression: Hyperglycemia, Acute renal failure Condition: Fair
[2016-07-15] MEDS ORDERED: NS 1,000 ML IV ONE ×4 (13:29→16:30)
--- NOTE | 2016-07-15 13:40 | CPEKG ---
Heart Rate: 84 RR Interval: 714 P-R Interval: 120 QRSD Interval: 94 QT Interval: 404 QTC Interval: 478 QRS [place]: 72 T Wave [place]: 45 EKG Severity - NORMAL ECG - EKG Impression: SINUS RHYTHM Electronically Signed By: Omar Hyman 15-Jul-2016 13:55:26
[2016-07-15] MEDS ORDERED: ALTEPLASE 2 MG VIAL IVP PRN (14:11)
[2016-07-15 14:29] LABS: COLOR PALE YELLOW; LEUKOCYTE ESTERASE,URINE 2+ (NEGATIVE); NITRITE,URINE NEGATIVE (NEGATIVE)
[2016-07-15] MEDS ORDERED: PROMETHAZINE HCL 25 MG/ML VIAL IVP ONE (15:04)
[2016-07-15 15:16] LABS: % IMMATURE GRANULYOCYTES 1.2 % (0.0-1.1); ABSOLUTE IMMATURE GRANULOCYTES 0.09 10^3/uL (0.00-0.10); ADD DIFF? NO; ADD MORPH? NO; ADD SCAN? NO; ATYPICAL LYMPHOCYTE FLAG 0 (0-99); FRAGMENT RBC FLAG 0 (0-99); HEMATOCRIT 31.9 % (38.0-47.0); HEMOGLOBIN 10.5 g/dL (12.6-16.3); LEFT SHIFT FLG 10 (0-99); LIPEMIA HEMOLYSIS FLAG 80 (0-99); MEAN CELL HEMOGLOBIN 28.2 pg (27.9-34.1); MEAN CELL HEMOGLOBIN CONCENTR. 32.9 g/dL (32.4-36.7); MEAN CELL VOLUME 85.5 fL (81.5-99.8); MEAN PLATELET VOLUME 11.2 fL (8.7-11.7); PLATELET CLUMPS FLAG 10 (0-99); PLATELET COUNT 118 10^3/uL (150-400); RED BLOOD CELL COUNT 3.73 10^6/uL (4.18-5.33); RED CELL DISTRIBUTION WIDTH 15.3 % (11.5-15.2)
[2016-07-15 15:33] LABS: ANION GAP 11 mEq/L (8-16); CALCIUM 8.8 mg/dL (8.5-10.4); CARBON DIOXIDE 32 mEq/l (22-31); CHLORIDE 87 mEq/L (97-110); CREATININE 2.4 mg/dL (0.6-1.0); GLOMERULAR FILTRATION RATE 20; POTASSIUM 4.3 mEq/L (3.5-5.2); SODIUM 130 mEq/L (134-144)
[2016-07-15 16:15] LABS: GLUCOSE 543 mg/dL (70-100)
[2016-07-15] MEDS ORDERED: INSULIN REGULAR HUMAN 100 UNIT/ML IVP ONE (16:17)
[2016-07-15] MEDS ORDERED: ONDANSETRON DISINTEGRATING 4 MG TAB PO PRN (16:27)
[2016-07-15] MEDS ORDERED: ONDANSETRON 4 MG/2 ML VIAL IVP PRN (16:27)
[2016-07-15] MEDS ORDERED: D50W 25 GM/50 ML SYR IVP PRN (16:31)
[2016-07-15] MEDS ORDERED: ALBUTEROL 3 ML DEYVIAL IH PRN (18:16)
[2016-07-15] MEDS ORDERED: SODIUM CL NASAL 45 ML BTL EACHNARE PRN (18:16)
[2016-07-15] MEDS ORDERED: HYOSCYAMINE SULFATE 0.125 MG TAB PO PRN (18:16)
[2016-07-15] MEDS: oxyCODONE IR 5 MG TAB PO PRN (18:38)
[2016-07-15] MEDS: PATCH REMOVAL 1 EA PATCH TD SCH (19:25)
[2016-07-15] MEDS: NYSTATIN POWDER 15 GM BTL TP SCH (19:30)
[2016-07-15] MEDS: GABAPENTIN 400 MG CAP PO SCH (19:31)
[2016-07-15] MEDS: ATORVASTATIN CALCIUM 20 MG TAB PO SCH (19:31)
[2016-07-15] MEDS: INSULIN LISPRO 100 UNIT/ML SC SCH (19:31)
[2016-07-15] MEDS: SENNOSIDES 1 TAB PO SCH (19:31)
[2016-07-15] MEDS: APIXABAN 5 MG TAB PO SCH (19:31)
--- NOTE | 2016-07-15 20:46 | GHP ---
[f rep st] HISTORY AND PHYSICAL DATE OF ADMISSION: 07/15/2016 CHIEF COMPLAINT: Hyperglycemia. HISTORY OF PRESENT ILLNESS: An insulin-dependent diabetic who has had multiple recent hospitalizatio ns for hyperglycemia and acute kidney injury, who re-presents from her longterm facility today with similar complaints. Upon arrival to the medical floor, the patient is endorsing blurry vision. Denying any headache, denying chest pain, or shortness of breath. I believe she has had some subje ctive fevers and chills. Denies any constipation. Has had loose stools for 24 hours that she descri bes as nonbloody. Denies any dysuria or hematuria. Reports some lower extremity edema which has bee n stable and chronic abdominal pain which she reports is unchanged. Reports some nausea associated w ith this but no vomiting. PAST MEDICAL HISTORY: 1. Insulin-dependent diabetes. 2. COPD. 3. Chronic hypoxic respiratory failure. 4. Hypertension. 5. CKD. 6. Morbid obesity. 7. Hypothyroidism. 8. Chronic pain with continuous opioid dependency. 9. Mood disorder. 10. Thoracic outlet syndrome. 11. Distant history of pulmonary embolism. 12. Reported history of atrial fibrillation. 13. Recurrent acute on chronic kidney injuries. SOCIAL HISTORY: Negative for tobacco, alcohol, or illicit drugs. FAMILY HISTORY: Positive for diabetes. ADVANCED DIRECTIVES: Patient is full cor, full tube. Her friend would be her medical decision maker . REVIEW OF SYSTEMS: A 10-point review of systems is negative with the exception of that reported in t he HPI. PHYSICAL EXAMINATION: VITAL SIGNS: Blood pressure 131/79, heart rate 92, respiratory rate 20, 100% on 4 liters, 36.8. GENERAL: This is a morbidly obese, middle-aged female in no acute distress. JOSEPH NT: Notable for dry mucous membranes. Eye exam is negative for any icterus. CARDIAC: Patient is r egular rate and rhythm. PULMONARY: Poor respiratory effort but clear to auscultation bilaterally. GASTROINTESTINAL: Positive bowel sounds. Patient is obese. Abdomen is soft and nontender. MUSCULO SKELETAL: 2+ pitting edema to the knees. SKIN: Chronic venous stasis changes bilaterally. NEUROLO GIC: She is alert and oriented x3. PSYCHIATRIC: She is cooperative with interview and examination. DATA: White count 7.5, hematocrit 31.9, platelets of 118. Sodium 130, last checked 141, potassium 4 .3, creatinine 2.4, last check 1.7, BUN elevated at 42, blood glucose of 543. Hemoglobin A1c last ch ecked 7.6. Urinalysis showed 2+ leuk esterase, 1-3 white blood cells, 3+ glucose. EKG which I perso keke reviewed and interpreted, shows sinus rhythm, normal access, normal intervals with no acute ST- T changes. ASSESSMENT AND PLAN: This is a 61-year-old female, who is [facility] presenting with hypergl ycemia. 1. Acute hyperglycemia without diabetic ketoacidosis. The patient is unable to really tell me how f requently she is receiving insulin, how much she is receiving or really correlate her intake at the [facility]. Suspect there is a gap between prescribed discharge medications, those received, and he r diet likely being different in side the hospital than at the [facility]. Will reinitiate higher dose recently uptitrated long-acting insulin regimen. Cover with additional sliding scale insulin. No indication to repeat hemoglobin A1c as once has been checked in the last week. Will aggressively fluid resuscitate and follow. 2. Acute on chronic kidney injury. Suspect this is likely multifactorial with hyperglycemia and hyp ovolemia induced by diuretic use. Again, will aggressively fluid resuscitate and recheck her renal f unction in the morning. Will hold her Lasix on admit. 3. Morbid obesity, this is certainly complicating the patient's overall health. 4. Hypothyroidism. Will continue her levothyroxine. 5. Chronic obstructive pulmonary disease. Will continue her home inhaled medications and oxygen rep letion. 6. Atrial fibrillation. Patient is on Eliquis and amiodarone we will continue bowl EKG reviewed lona ws sinus rhythm, rate controlled. 7. Chronic pain with continuous narcotic dependency. Will continue her outpatient dosing of oxycodo ne p.r.n. 8. Prophylaxis. Patient is on Eliquis. 9. Diet: Diabetic. DISPOSITION: Expecting greater than 2 midnights as the patient may not be a candidate to return to [facility]. Will consult case management in the morning to assist with disposition planning. I discu ssed the case with the emergency room physician. Patient will be triaged to the medical-surgical kai or for aggressive fluid resuscitation with IV normal saline and insulin uptitration. /[id number]/MODL
[2016-07-15] MEDS ORDERED: INSULIN GLARGINE 100 UNITS/ML SYRINGE SC SCH (21:00)
[2016-07-15] MEDS: INSULIN GLARGINE 100 UNITS/ML SYRINGE SC SCH (22:05)
[2016-07-15] MEDS: NS 1,000 ML IV SCH (22:05)
[2016-07-16] MEDS: ACETAMINOPHEN 325 MG TAB PO PRN ×2 (02:18→07:49)
[2016-07-16 03:03] LABS: % IMMATURE GRANULYOCYTES 0.9 % (0.0-1.1); ABSOLUTE IMMATURE GRANULOCYTES 0.07 10^3/uL (0.00-0.10); ADD DIFF? NO; ADD MORPH? NO; ADD SCAN? NO; ATYPICAL LYMPHOCYTE FLAG 0 (0-99); FRAGMENT RBC FLAG 0 (0-99); HEMATOCRIT 28.3 % (38.0-47.0); HEMOGLOBIN 9.1 g/dL (12.6-16.3); LEFT SHIFT FLG 20 (0-99); LIPEMIA HEMOLYSIS FLAG 80 (0-99); MEAN CELL HEMOGLOBIN 27.4 pg (27.9-34.1); MEAN CELL HEMOGLOBIN CONCENTR. 32.2 g/dL (32.4-36.7); MEAN CELL VOLUME 85.2 fL (81.5-99.8); MEAN PLATELET VOLUME 11.2 fL (8.7-11.7); PLATELET CLUMPS FLAG 0 (0-99); PLATELET COUNT 107 10^3/uL (150-400); RED BLOOD CELL COUNT 3.32 10^6/uL (4.18-5.33); RED CELL DISTRIBUTION WIDTH 15.1 % (11.5-15.2)
[2016-07-16] MEDS: oxyCODONE IR 5 MG TAB PO PRN ×3 (03:05→18:20)
[2016-07-16 03:34] LABS: ANION GAP 9 mEq/L (8-16); CARBON DIOXIDE 28 mEq/l (22-31); CHLORIDE 96 mEq/L (97-110); GLOMERULAR FILTRATION RATE 25; GLUCOSE 285 mg/dL (70-100); POTASSIUM 4.3 mEq/L (3.5-5.2); SODIUM 133 mEq/L (134-144)
[2016-07-16] MEDS: LEVOTHYROXINE 100 MCG TAB PO SCH (05:02)
[2016-07-16] MEDS: GABAPENTIN 400 MG CAP PO SCH ×5 (05:02→20:35)
[2016-07-16] MEDS: INSULIN LISPRO 100 UNIT/ML SC SCH ×3 (07:41→17:49)
[2016-07-16] MEDS: INSULIN GLARGINE 100 UNITS/ML SYRINGE SC SCH ×2 (07:42→21:48)
[2016-07-16] MEDS: AMIODARONE HCL 200 MG TAB PO SCH (07:51)
[2016-07-16] MEDS: ASPIRIN 81 MG CHEWABLE TAB PO SCH (07:52)
[2016-07-16] MEDS: CETIRIZINE 10 MG TAB PO SCH (07:52)
[2016-07-16] MEDS: FAMOTIDINE 20 MG TAB PO SCH (07:52)
[2016-07-16] MEDS: APIXABAN 5 MG TAB PO SCH ×2 (07:52→20:35)
[2016-07-16] MEDS: SENNOSIDES 1 TAB PO SCH ×2 (07:55→20:35)
--- NOTE | 2016-07-16 08:29 | HOSPPROG ---
Hospitalist Progress Note Assessment/Plan: #Uncontrolled DM -sugars > 300 here. Increase Glargine to 45 units BID, SSI #Urinary frequency -hyperglycemia vs infection. Mild pyuria. Culture pending #Pseudohyponatremia -due to hyperglycemia -better today. Cont insulin and IVFs #Chronic pain: cont oxy PRN #Hypothyroidism -LT4 #Acute on CKD -no resolved with IVFs. Hold lasix Cr at baseline today. Cont IVFs #Chronic hypoxemic resp failure -stable on home needs #Atrial fibrillation: Eliquis #Diet: DM #DVT ppx: on Eliqis #Disp: warrants admission with persistent hyperglycemia needing IVFs, insulin Subjective: headache this morning Objective: Vital Signs Temp Pulse Resp BP Pulse Ox 38.0 C 96 18 111/64 100 07/16/16 07:13 07/16/16 07:13 07/16/16 07:13 07/16/16 07:13 07/16/16 07:13 Laboratory Results 07/16/16 03:00 07/16/16 03:00 07/15/16 07/16/16 07/17/16 05:59 05:59 05:59 Intake Total 4115 Balance 4115 - Physical Exam Constitutional: obese Eyes: PERRL, anicteric sclera Ears, Nose, Mouth, Throat: moist mucous membranes, hearing normal Cardiovascular: regular rate and rhythym, no murmur, rub, or gallop Respiratory: no respiratory distress Gastrointestinal: normoactive bowel sounds, soft, non-tender abdomen, no palpable masses Genitourinary: no bladder fullness Skin: warm Musculoskeletal: full muscle strength Neurologic: AAOx3, CN II-XII Intact Psychiatric: interacting appropriately ICD10 Worksheet Patient Problems: Problems Problem Status Diagnosed Acute renal failure Acute Atrial fibrillation Acute Chest pain Acute Hyperglycemia Acute Obesity hypoventilation syndrome Acute Overdose Acute Seizure Acute UTI (lower urinary tract infection) Acute
[2016-07-16] MEDS ORDERED: INSULIN GLARGINE 100 UNITS/ML SYRINGE SC SCH ×2 (08:34→09:00)
[2016-07-16] MEDS ORDERED: ESTRADIOL 42.5 GM CRTUBE VG SCH (09:00)
[2016-07-16] MEDS ORDERED: Herbals/Supplements -Info Only PO SCH (09:00)
[2016-07-16] MEDS ORDERED: INSULIN GLARGINE 100 UNITS/ML SYRINGE SC ONE (09:00)
[2016-07-16] MEDS: TIOTROPIUM INHALER 18 MCG/DOSE 5 DOSE/MDI IH SCH (10:13)
[2016-07-16] MEDS: NS 1,000 ML IV SCH ×2 (10:41→18:28)
[2016-07-16] MEDS: LIDOCAINE 5% 1 EA PATCH TD SCH (10:53)
[2016-07-16] MEDS: NYSTATIN POWDER 15 GM BTL TP SCH ×2 (11:02→20:39)
[2016-07-16 12:58] LABS: GLUCOSE 388 mg/dL (70-100)
--- NOTE | 2016-07-16 15:32 | DX ---
AP and Lateral Chest July 16, 2016 History: Assess for edema/effusions. Comparison: Portable chest July 08, 2016. Findings: Mild peribronchial thickening is unchanged. The lateral is limited by motion, with no def inite focal consolidation or visible pleural effusions. Moderate cardiomegaly and mild central pulmo nary vascular prominence are stable. Right internal jugular central venous catheter has been removed . The bones are stable, including resection of the anterior left 1st and 2nd ribs and partial fusion of the lateral right 1st and 2nd ribs. Impression: Mild peribronchial thickening, which could be related to fluid overload, without marc f ailure.
[2016-07-16 18:16] LABS: GLUCOSE 336 mg/dL (70-100)
[2016-07-16] MEDS: ATORVASTATIN CALCIUM 20 MG TAB PO SCH (20:35)
[2016-07-16] MEDS: PATCH REMOVAL 1 EA PATCH TD SCH (21:24)
[2016-07-17] MEDS: oxyCODONE IR 5 MG TAB PO PRN ×4 (00:23→21:56)
[2016-07-17] MEDS: NS 1,000 ML IV SCH ×4 (01:09→21:53)
[2016-07-17] MEDS ORDERED: TEMAZEPAM 15 MG CAP PO ONE ×2 (01:41→02:30)
[2016-07-17 07:26] LABS: ANION GAP 8 mEq/L (8-16); CARBON DIOXIDE 27 mEq/l (22-31); CHLORIDE 105 mEq/L (97-110); CREATININE 1.6 mg/dL (0.6-1.0); GLOMERULAR FILTRATION RATE 33; GLUCOSE 343 mg/dL (70-100); POTASSIUM 4.4 mEq/L (3.5-5.2); SODIUM 140 mEq/L (134-144)
[2016-07-17] MEDS: LEVOTHYROXINE 100 MCG TAB PO SCH (08:06)
[2016-07-17] MEDS: FAMOTIDINE 20 MG TAB PO SCH (08:06)
[2016-07-17] MEDS: CETIRIZINE 10 MG TAB PO SCH (08:06)
[2016-07-17] MEDS: GABAPENTIN 400 MG CAP PO SCH ×4 (08:06→20:48)
[2016-07-17] MEDS: ASPIRIN 81 MG CHEWABLE TAB PO SCH (08:07)
[2016-07-17] MEDS: AMIODARONE HCL 200 MG TAB PO SCH (08:07)
[2016-07-17] MEDS: APIXABAN 5 MG TAB PO SCH ×2 (08:07→20:48)
[2016-07-17] MEDS: NYSTATIN POWDER 15 GM BTL TP SCH ×2 (08:08→20:49)
[2016-07-17] MEDS: SENNOSIDES 1 TAB PO SCH ×2 (08:14→20:48)
[2016-07-17] MEDS: LIDOCAINE 5% 1 EA PATCH TD SCH (08:14)
[2016-07-17] MEDS: TIOTROPIUM INHALER 18 MCG/DOSE 5 DOSE/MDI IH SCH (09:41)
[2016-07-17] MEDS: INSULIN GLARGINE 100 UNITS/ML SYRINGE SC SCH (10:10)
[2016-07-17] MEDS: INSULIN LISPRO 100 UNIT/ML SC SCH ×6 (10:10→18:17)
--- NOTE | 2016-07-17 12:09 | WOCRNPDOC ---
ADAN Advanced Assessment Note - Skin Integrity Problem, Advanced Assess Right Buttock Incont Assoc Dermatitis Dressing Type: Allevyn Life Dressing Description: Clean/Dry, Intact Exudate Amount: Scant Exudate Color: Red Exudate Characteristic(s): Bloody Crista Wound Tissue: Blanching, Erythema, Raw, Denuded, Shiny Crista Wound Swelling: Mild Wound Bed Color: Red Wound Bed Constitution: Smooth Tissue Site Measurement - Head-to-Toe Length X Width X Depth (cm): 1cmx0.2cmx0.1cm Skin Integrity Problem Comment: Small area of partial-thickness tissue loss noted on R medial buttock, consistent in apppearance w/ shearing injury. Site is presently blanching, and injury does not appear to be the result of pressure. Skin across patient's gluteal cleft and folds is denuded and raw in appearance, consistent in appearance w/ moisture-associated dermatitis. Patient reports history of breakdown to this area. Supplied qa test analyst Lynn w/ 4 sets of Interdry sheets to tuck into gluteal cleft/folds to mitigate damage from moisture. I encouraged patient to turn [id number] to alleviate pressure on her buttocks, as the skin is fragile and already susceptible to injury. She declined to lay on her side.
--- NOTE | 2016-07-17 13:35 | HOSPPROG ---
Hospitalist Progress Note Assessment/Plan: #Uncontrolled DM -still high despite glargine increase. Adding mealtime insulin 5 units, will likely have to increase. #Proteus UTI -cont IV CTX while here for total of 3 days abx -hyperglycemia vs infection. Mild pyuria. Culture pending #Pseudohyponatremia -due to hyperglycemia. Now resolved with IVFs, insulin #Right buttock dermatitis: present at admission. Wound care #Chronic pain: cont oxy PRN #Chronic HAs -likely due to SITA; used to wear CPAP. Will have started this court #Hypothyroidism -LT4 #Acute on CKD -no resolved with IVFs. Hold lasix Cr at baseline today. Cont IVFs #Chronic hypoxemic resp failure -stable on home needs #Atrial fibrillation: Eliquis #Diet: DM #DVT ppx: on Eliqis #Disp: warrants admission with persistent hyperglycemia needing IVFs, insulin. Hope to DC in 1-2 days with improvement of sugars Subjective: tired bc took Temazepam at 230am. Chronic headaches. Used to wear CPAP Objective: Vital Signs Temp Pulse Resp BP Pulse Ox 36.4 C 66 20 122/66 H 100 07/17/16 07:46 07/17/16 07:46 07/17/16 07:46 07/17/16 07:46 07/17/16 07:46 Laboratory Results 07/16/16 03:00 07/16/16 07/17/16 07/18/16 05:59 05:59 05:59 Intake Total 4115 2350 Balance 4115 2350 - Physical Exam Constitutional: obese, other (tired-appearing) Ears, Nose, Mouth, Throat: moist mucous membranes, hearing normal Cardiovascular: regular rate and rhythym, no murmur, rub, or gallop Respiratory: no respiratory distress Gastrointestinal: normoactive bowel sounds, soft, non-tender abdomen Genitourinary: no bladder fullness, no bladder tenderness Skin: warm, other (BL LE venous stasis dermatitis. No signs of cellulitis) Musculoskeletal: full muscle strength Neurologic: AAOx3 Psychiatric: flat affect ICD10 Worksheet Patient Problems: Problems Problem Status Diagnosed Acute renal failure Acute Atrial fibrillation Acute Chest pain Acute Hyperglycemia Acute Obesity hypoventilation syndrome Acute Overdose Acute Seizure Acute UTI (lower urinary tract infection) Acute
[2016-07-17 13:44] LABS: GLUCOSE 316 mg/dL (70-100)
--- NOTE | 2016-07-17 14:31 | PDIAF ---
- Diagnosis Code Status: Do Not Resuscitate - Medication Management Discharge Medications: Medications to Continue on Transfer Aspirin [Aspirin 81mg (*)] 81 mg PO DAILY 07/20/13 [Last Taken 02/14/14] Furosemide [Lasix 40 MG (*)] 40 mg PO BIDDIUR 07/20/13 [Last Taken 01/31/14] Lidocaine 5% [Lidoderm 5% Patch (*)] 1 ea TD DAILY 07/20/13 [Last Taken 01/31/14 ] Levothyroxine [Synthroid 100 mcg (*)] 100 mcg PO DAILY06 12/22/13 [Last Taken 09:00] Nystatin [Nyamyc] 1 sonny TP BID 02/14/14 [Last Taken Unknown] Acetaminophen [Tylenol 325mg (*)] 650 mg PO Q4 PRN 07/07/16 [Last Taken Unknown] Amiodarone HCl [Pacerone (*)] 200 mg PO DAILY 07/07/16 [Last Taken Unknown] Atorvastatin Calcium [Lipitor 20 mg (*)] 20 mg PO HS 07/07/16 [Last Taken Unknown] Estradiol [Estrace Vaginal (*)] 1 gm VG TUSA 07/07/16 [Last Taken 07/13/16] Gabapentin [Neurontin 400 MG (*)] 400 mg PO QID 07/07/16 [Last Taken Unknown] Herbals/Supplements -Info Only 1 ea PO DAILY 07/07/16 [Last Taken Unknown] Hyoscyamine Sulfate [Levsin, Hyomax-Sl 0.125 mg (*)] 0.125 mg PO Q8HRS PRN 07/07 [Last Taken Unknown] Insulin Lispro [humALOG LISPRO 100 units/ml (*)] 12 unit SC AD 07/07/16 [Last Taken Unknown] Loratadine [Claritin 10 mg] 10 mg PO DAILY 07/07/16 [Last Taken Unknown] Ranitidine HCl 150 mg PO DAILY 07/07/16 [Last Taken Unknown] Sennosides [Senokot] 1 each PO BID 07/07/16 [Last Taken Unknown] Sodium Cl Nasal [[employer] [place] (*)] 1 spray EACHNARE Q2HRS PRN 07/07/16 [Last Taken Unknown] Tiotropium Inhaler [Spiriva Handihaler] 18 mcg IH DAILY 07/07/16 [Last Taken Unknown] oxyCODONE IR [Oxycodone Ir (*)] 10 mg PO TID PRN 07/07/16 [Last Taken Unknown] sitaGLIPtin PHOSPHATE [Januvia 100 MG (*)] 100 mg PO DAILY 07/07/16 [Last Taken Unknown] Apixaban [Eliquis] 5 mg PO BID #0 tab 07/10/16 [Last Taken Unknown] Albuterol [Proventil Neb] 3 ml IH Q6 PRN 07/15/16 [Last Taken Unknown] Insulin Detemir [Levemir Flextouch] 36 unit SQ BID 07/15/16 [Last Taken Unknown] Ondansetron HCl [Zofran] 4 mg PO Q6 PRN 07/15/16 [Last Taken Unknown] oxyCODONE IR [Oxycodone Ir (*)] 10 mg PO DAILY PRN 07/15/16 [Last Taken Unknown] Discharge Medications: Refer to the Discharge Home Medication list for PRN reason. - Orders Services needed: Registered Nurse, Certified Bricklayer Supervisor, Physical Therapy Oxygen: Please help to set up CPAP; she was on this previously - Follow Up Care Current Providers and Referrals: Arie Rodas MD [Primary Care Provider] -
[2016-07-17] MEDS ORDERED: INSULIN GLARGINE 100 UNITS/ML SYRINGE SC SCH (14:37)
[2016-07-17] MEDS ORDERED: POLYETHYLENE GLYCOL 3350 17 GM PKT PO PRN (20:14)
[2016-07-17] MEDS ORDERED: LACTULOSE 20 GM/30 ML UDCUP PO PRN (20:14)
[2016-07-17] MEDS ORDERED: MAGNESIUM HYDROXIDE 30 ML UDCUP PO PRN (20:14)
[2016-07-17] MEDS ORDERED: BISACODYL 10 MG SUPP PR PRN (20:14)
[2016-07-17] MEDS: ATORVASTATIN CALCIUM 20 MG TAB PO SCH (20:47)
[2016-07-17] MEDS: SENNOSIDES/DOCUSATE SODIUM TAB PO SCH (20:49)
[2016-07-17] MEDS: PATCH REMOVAL 1 EA PATCH TD SCH (20:49)
[2016-07-18] MEDS: oxyCODONE IR 5 MG TAB PO PRN ×3 (04:36→16:47)
[2016-07-18] MEDS: LEVOTHYROXINE 100 MCG TAB PO SCH (04:36)
[2016-07-18] MEDS: GABAPENTIN 400 MG CAP PO SCH ×3 (04:36→17:40)
[2016-07-18 05:37] LABS: ANION GAP 7 mEq/L (8-16); CALCIUM 8.6 mg/dL (8.5-10.4); CARBON DIOXIDE 26 mEq/l (22-31); CHLORIDE 109 mEq/L (97-110); CREATININE 1.4 mg/dL (0.6-1.0); GLOMERULAR FILTRATION RATE 38; GLUCOSE 133 mg/dL (70-100); POTASSIUM 4.6 mEq/L (3.5-5.2); SODIUM 142 mEq/L (134-144)
[2016-07-18] MEDS ORDERED: INSULIN GLARGINE 100 UNITS/ML SYRINGE SC SCH ×2 (08:03→08:06)
[2016-07-18] MEDS: TIOTROPIUM INHALER 18 MCG/DOSE 5 DOSE/MDI IH SCH (08:41)
[2016-07-18] MEDS: CETIRIZINE 10 MG TAB PO SCH (10:16)
[2016-07-18] MEDS: ASPIRIN 81 MG CHEWABLE TAB PO SCH (10:16)
[2016-07-18] MEDS: FAMOTIDINE 20 MG TAB PO SCH (10:17)
[2016-07-18] MEDS: AMIODARONE HCL 200 MG TAB PO SCH (10:17)
[2016-07-18] MEDS: APIXABAN 5 MG TAB PO SCH (10:17)
[2016-07-18] MEDS: SENNOSIDES/DOCUSATE SODIUM TAB PO SCH (10:17)
[2016-07-18] MEDS: SENNOSIDES 1 TAB PO SCH (10:19)
[2016-07-18] MEDS: LIDOCAINE 5% 1 EA PATCH TD SCH ×2 (10:20→10:51)
[2016-07-18] MEDS: INSULIN LISPRO 100 UNIT/ML SC SCH ×3 (10:21→17:40)
[2016-07-18] MEDS: NYSTATIN POWDER 15 GM BTL TP SCH (10:45)
--- NOTE | 2016-07-18 12:36 | HOSPPROG ---
Hospitalist Progress Note Assessment/Plan: #Uncontrolled DM -sugars dropped this morning with uptitration of glargine and scheduled Lispro. Low was 83. Will check serial POC glucose. She is eating #Proteus UTI -completed 3 days Ceftriaxonec #Pseudohyponatremia -due to hyperglycemia. Now resolved with IVFs, insulin #Right buttock dermatitis: present at admission. Wound care #Chronic pain: cont oxy PRN #Chronic HAs -likely due to SITA; used to wear CPAP. Will have started this court #Hypothyroidism -LT4 #Acute on CKD -no resolved with IVFs. Hold lasix Cr at baseline today. Cont IVFs #Chronic hypoxemic resp failure -stable on home needs #Atrial fibrillation: Eliquis #Diet: DM #DVT ppx: on Eliqis #Disp: warrants admission with persistent hyperglycemia needing IVFs, insulin. Hope to DC in 1-2 days with improvement of sugars Subjective: tired this morning Objective: Vital Signs Temp Pulse Resp BP Pulse Ox 36.6 C 68 14 142/67 H 98 07/18/16 08:00 07/18/16 08:44 07/18/16 08:44 07/18/16 08:00 07/18/16 08:44 Laboratory Results 07/16/16 03:00 07/18/16 04:40 07/17/16 07/18/16 07/19/16 05:59 05:59 05:59 Intake Total 2350 2981 Balance 2350 2981 - Physical Exam Constitutional: no apparent distress, obese, other (tired-appearing) Eyes: PERRL Ears, Nose, Mouth, Throat: moist mucous membranes, hearing normal Cardiovascular: regular rate and rhythym, no murmur, rub, or gallop Respiratory: no respiratory distress, no rales or rhonchi Gastrointestinal: normoactive bowel sounds, soft, non-tender abdomen Skin: warm, other (chronic venous stasis skin changes in LEs) Musculoskeletal: full muscle strength Neurologic: AAOx3 Psychiatric: flat affect ICD10 Worksheet Patient Problems: Problems Problem Status Diagnosed Acute renal failure Acute Atrial fibrillation Acute Chest pain Acute Hyperglycemia Acute Obesity hypoventilation syndrome Acute Overdose Acute Seizure Acute UTI (lower urinary tract infection) Acute
--- NOTE | 2016-07-18 13:28 | PDIAF ---
- Diagnosis Code Status: Do Not Resuscitate - Medication Management Discharge Medications: Medications to Continue on Transfer Aspirin [Aspirin 81mg (*)] 81 mg PO DAILY 07/20/13 [Last Taken 02/14/14] Furosemide [Lasix 40 MG (*)] 40 mg PO BIDDIUR 07/20/13 [Last Taken 01/31/14] Lidocaine 5% [Lidoderm 5% Patch (*)] 1 ea TD DAILY 07/20/13 [Last Taken 01/31/14 ] Levothyroxine [Synthroid 100 mcg (*)] 100 mcg PO DAILY06 12/22/13 [Last Taken 09:00] Nystatin [Nyamyc] 1 sonny TP BID 02/14/14 [Last Taken Unknown] Acetaminophen [Tylenol 325mg (*)] 650 mg PO Q4 PRN 07/07/16 [Last Taken Unknown] Amiodarone HCl [Pacerone (*)] 200 mg PO DAILY 07/07/16 [Last Taken Unknown] Atorvastatin Calcium [Lipitor 20 mg (*)] 20 mg PO HS 07/07/16 [Last Taken Unknown] Estradiol [Estrace Vaginal (*)] 1 gm VG TUSA 07/07/16 [Last Taken 07/13/16] Gabapentin [Neurontin 400 MG (*)] 400 mg PO QID 07/07/16 [Last Taken Unknown] Herbals/Supplements -Info Only 1 ea PO DAILY 07/07/16 [Last Taken Unknown] Hyoscyamine Sulfate [Levsin, Hyomax-Sl 0.125 mg (*)] 0.125 mg PO Q8HRS PRN 07/07 [Last Taken Unknown] Loratadine [Claritin 10 mg] 10 mg PO DAILY 07/07/16 [Last Taken Unknown] Ranitidine HCl 150 mg PO DAILY 07/07/16 [Last Taken Unknown] Sennosides [Senokot] 1 each PO BID 07/07/16 [Last Taken Unknown] Sodium Cl Nasal [[employer] [place] (*)] 1 spray EACHNARE Q2HRS PRN 07/07/16 [Last Taken Unknown] Tiotropium Inhaler [Spiriva Handihaler] 18 mcg IH DAILY 07/07/16 [Last Taken Unknown] oxyCODONE IR [Oxycodone Ir (*)] 10 mg PO TID PRN 07/07/16 [Last Taken Unknown] sitaGLIPtin PHOSPHATE [Januvia 100 MG (*)] 100 mg PO DAILY 07/07/16 [Last Taken Unknown] Apixaban [Eliquis] 5 mg PO BID #0 tab 07/10/16 [Last Taken Unknown] Albuterol [Proventil Neb] 3 ml IH Q6 PRN 07/15/16 [Last Taken Unknown] Ondansetron HCl [Zofran] 4 mg PO Q6 PRN 07/15/16 [Last Taken Unknown] oxyCODONE IR [Oxycodone Ir (*)] 10 mg PO DAILY PRN 07/15/16 [Last Taken Unknown] Insulin Detemir [Levemir Flextouch] 40 unit SQ BID #0 insuln.pen 07/18/16 [Last Taken Unknown] Sennosides/Docusate Sodium [Senokot-S] 1 - 2 tab PO BID #0 tab 07/18/16 [Last Taken Unknown] Discharge Medications: Refer to the Discharge Home Medication list for PRN reason. - Orders Services needed: Registered Nurse, Certified Strategy Analyst, Physical Therapy Oxygen: Please help to set up CPAP; she was on this previously Diet Recommendation: ADA 2000 consistent carb Diet Texture: Regular Texture Diet - Labs/Radiology Other Lab Name, Date and Time: please check serial POC glucoses today; glucose 83 after glargine increase - Follow Up Care Current Providers and Referrals: Arie Rodas MD [Primary Care Provider] -
--- NOTE | 2016-07-18 14:16 | GDS ---
[f rep st] DISCHARGE SUMMARY DISCHARGE DIAGNOSES: 1. Insulin-dependent diabetes with hyperglycemia. 2. Chronic obstructive pulmonary disease. 3. Chronic hypoxemic respiratory failure, likely secondary to obstructive sleep apnea. 4. Hypertension. 5. Chronic kidney disease. 6. Morbid obesity. 7. Hypothyroidism. 8. Chronic pain with continuous opioid dependency. 9. Depression. 10. Thoracic outlet syndrome. 11. Distant history of pulmonary embolism. 12. Reported history of atrial fibrillation. 13. Proteus urinary tract infection. 14. Chronic headaches. 15. Pseudohyponatremia. 16. Right buttock dermatitis. The patient is a 61-year-old female with insulin-dependent diabetes, obesity, who has had multiple re cent hospitalizations for hyperglycemia and acute kidney injury. She re-presented on 07/15/2016 with similar complaints. Upon arrival to the medical floor she endorse blurry vision. She denied any he adaches, chest pain, or shortness of breath. She cannot tell us how much insulin she is being dosed. She did report increased urinary frequency. HOSPITAL COURSE BY PROBLEM: 1. Uncontrolled diabetes with hyperglycemia: Glucose elevated to 526 at time of admission with no a nion gap. May have been elevated in the setting of acute UTI. Query dietary indiscretions. The jac zepeda was admitted to the medical floor and treated with glargine and sliding scale insulin. Sugars w ere persistently greater than 350, thus up titrated glargine to 50 units twice daily with scheduled m ealtime. This morning, she did have a glucose of 83 without symptoms. We will decrease discharge de temir to 40 units b.i.d. with scheduled 5 units with meals. Recommend serial POC glucoses and up tit rate insulin as needed. 2. Proteus UTI: Received 3 days of antibiotic treatment. 3. Chronic headaches: Patient endorses headaches for years. Suspect it may be due to SITA. She pre viously used CPAP. I recommend that she has this reinitiated at nursing facility. 4. Chronic pain with opioid dependency: Resumed her home medications. She wanted me to increase th is dosage, but I said that she needs to follow up with her PCP. 5. Pseudohyponatremia: Sodium low at 131 on admission. This resolved with treatment with IV fluids and IV insulin. 6. MIRNA: Secondary to dehydration along with diuretics. Her creatinine is now at baseline, 1.4. Sh e may resume home medications at discharge. 7. Hypothyroidism: Continue levothyroxine. 8. Right buttock dermatitis: This was present on admission. Wound care assisted during stay. 9. Chronic hypoxemic respiratory failure: Likely secondary to underlying SITA/OHS. The patient jazmín ants a CPAP evaluation as an outpatient. 10. Atrial fibrillation: Continue on Eliquis. DISPOSITION: The patient is set for discharge to [facility]. FOLLOWUP: 1. Point of care blood sugars. 2. Up titrate detemir as needed. 3. Reinitiate CPAP treatment. /[id number]/MODL
[2016-07-18 15:18] VITALS: BP 127/68; PULSE 63; RESP 16; TEMP 98.1; O2SAT 100
== END 2016-07-18 17:42 | DRG 638 ==
LOC: EDUNIT# → F3E 17:45
PROVIDERS: ADMIT Hospitalist; ATTEND Hospitalist
PROC: 06HM33Z Insertion of Infusion Device into Right Femoral Vein, Percutaneous Approach (ICD-10-PCS; principal; 2016-07-15)
DX: E11.65 Type 2 diabetes mellitus with hyperglycemia (principal); N39.0 Urinary tract infection, site not specified; B96.4 Proteus (mirabilis) (morganii) as the cause of diseases classified elsewhere; E87.1 Hypo-osmolality and hyponatremia; N17.9 Acute kidney failure, unspecified; J44.9 Chronic obstructive pulmonary disease, unspecified; J96.11 Chronic respiratory failure with hypoxia; G47.33 Obstructive sleep apnea (adult) (pediatric); I48.91 Unspecified atrial fibrillation; R51 Headache; E03.9 Hypothyroidism, unspecified; L30.9 Dermatitis, unspecified; E11.22 Type 2 diabetes mellitus with diabetic chronic kidney disease; N18.9 Chronic kidney disease, unspecified; G89.29 Other chronic pain; F11.20 Opioid dependence, uncomplicated; E66.01 Morbid (severe) obesity due to excess calories; Z68.41 Body mass index [BMI] 40.0-44.9, adult; Z79.4 Long term (current) use of insulin; Z90.5 Acquired absence of kidney; Z86.711 Personal history of pulmonary embolism; Z79.01 Long term (current) use of anticoagulants; Z99.81 Dependence on supplemental oxygen
CPT/HCPCS: 82947-QW; 96374; 97162-GP; 97166-GO; G8978-GP-CM; G8979-GP-CK; G8987-GO-CM; G8988-GO-CL; J0696; J1815; J2550

== ENCOUNTER 2016-07-19 01:11 | Emergency (ER) | payer OTHER, MEDICAID ==
[2016-07-19 01:46] LABS: ADD DIFF? YES; ADD MORPH? NO; ADD SCAN? NO; ATYPICAL LYMPHOCYTE FLAG 0 (0-99); FRAGMENT RBC FLAG 0 (0-99); HEMATOCRIT 28.2 % (38.0-47.0); HEMOGLOBIN 9.1 g/dL (12.6-16.3); LEFT SHIFT FLG 40 (0-99); LIPEMIA HEMOLYSIS FLAG 80 (0-99); MEAN CELL HEMOGLOBIN 27.7 pg (27.9-34.1); MEAN CELL HEMOGLOBIN CONCENTR. 32.3 g/dL (32.4-36.7); MEAN CELL VOLUME 85.7 fL (81.5-99.8); MEAN PLATELET VOLUME 10.8 fL (8.7-11.7); PLATELET CLUMPS FLAG 10 (0-99); PLATELET COUNT 141 10^3/uL (150-400); RED BLOOD CELL COUNT 3.29 10^6/uL (4.18-5.33); RED CELL DISTRIBUTION WIDTH 15.4 % (11.5-15.2)
[2016-07-19 01:57] LABS: ALANINE AMINOTRANSFERASE 28 IU/L (9-52); ALBUMIN 2.9 g/dL (3.5-5.0); ALKALINE PHOSPHATASE 87 IU/L (38-126); ANION GAP 9 mEq/L (8-16); ASPARTATE AMINOTRANSFERASE 19 IU/L (14-46); BILIRUBIN,TOTAL 0.3 mg/dL (0.1-1.4); CALCIUM 8.9 mg/dL (8.5-10.4); CARBON DIOXIDE 26 mEq/l (22-31); CHLORIDE 106 mEq/L (97-110); CREATININE 1.5 mg/dL (0.6-1.0); GLOMERULAR FILTRATION RATE 35; GLUCOSE 210 mg/dL (70-100); POTASSIUM 4.6 mEq/L (3.5-5.2); SODIUM 141 mEq/L (134-144); TOTAL PROTEIN 5.7 g/dL (6.3-8.2)
[2016-07-19] MEDS ORDERED: GABAPENTIN 400 MG CAP PO ONE (02:30)
[2016-07-19] MEDS ORDERED: INSULIN GLARGINE 100 UNITS/ML SYRINGE SC ONE (02:35)
[2016-07-19] MEDS ORDERED: APIXABAN 5 MG TAB PO ONE (02:36)
[2016-07-19] MEDS ORDERED: OXYCODONE/APAP 5/325 TAB PO ONE (02:36)
[2016-07-19 02:58] LABS: PLATELET ESTIMATE DECREASED (ADEQ); POLYCHROMASIA 1+
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
[2016-07-19 05:32] VITALS: TEMP 98.2
[2016-07-19] MEDS ORDERED: oxyCODONE IR 5 MG TAB PO ONE (09:35)
[2016-07-19] MEDS ORDERED: ACETAMINOPHEN 325 MG TAB PO ONE (09:46)
[2016-07-19 11:23] VITALS: BP 138/71; PULSE 64; RESP 20; O2SAT 95
== END 2016-07-19 11:23 | disposition home or self-care (01) ==
DX: E11.9 Type 2 diabetes mellitus without complications (principal); J44.9 Chronic obstructive pulmonary disease, unspecified; E66.2 Morbid (severe) obesity with alveolar hypoventilation; R45.851 Suicidal ideations; I10 Essential (primary) hypertension; Z79.4 Long term (current) use of insulin; Z79.82 Long term (current) use of aspirin
CPT/HCPCS: 99283; J1815